=== PATIENT | male | born 1970 | race Caucasian/White ===

== ENCOUNTER 2016-09-16 02:11 | Emergency (ER) | payer OTHER ==
[~2016-09-16] VITALS: Ht 190.5 cm; Wt 122.5 kg
[~2016-09-16 02:11] MED LIST: ACCUNEB SO1.25 MG/1; BREO ELLIPTA 21 EACH IH; CELEBREX 200 M200 MG PO; FLEXERIL PO; GABAPENTIN 100100 MG PO; GEODON20 MG PO; LAMICTAL100 MG; LINZESS290 MCG PO; NORVASC2.5 MG PO; OXYCONTIN CR 1010 MG PO; OXYCONTIN CR 2020 M1 PO; OXYCONTIN60 MG PO; PRILOSEC 20 MG20 MG PO; PROZAC20 M1 PO; ROXICODONE30 MG PO; SEROQUEL 100 M100 M1 PO; SEROQUEL XR400 MG PO; SEROQUEL300 MG PO; SYMBICORT160 MCG/4.; TRAZODONE 150150 M1 PO; ULTRA-LIGHT RO1 EACH MC; VALIUM5 MG PO; VERAPAMIL E.R240 M1 PO; WELLBUTRIN 100100 MG
== END 2016-09-16 04:39 | disposition home or self-care (01) ==
LOC: ER 02:11
DX: G89.18 Other acute postprocedural pain (principal); M54.5 Low back pain; Z98.890 Other specified postprocedural states; I10 Essential (primary) hypertension; J45.909 Unspecified asthma, uncomplicated; F31.9 Bipolar disorder, unspecified; F41.9 Anxiety disorder, unspecified; Z91.030 Bee allergy status; Z88.1 Allergy status to other antibiotic agents; Z88.5 Allergy status to narcotic agent; F17.210 Nicotine dependence, cigarettes, uncomplicated; F10.99 Alcohol use, unspecified with unspecified alcohol-induced disorder; W18.39XA Other fall on same level, initial encounter; Y93.89 Activity, other specified; Y92.89 Other specified places as the place of occurrence of the external cause; Y99.8 Other external cause status

== ENCOUNTER 2016-10-28 09:14 | Emergency (ER) | payer OTHER ==
[~2016-10-28] VITALS: Ht 188 cm; Wt 117.9 kg
[2016-10-28 09:52] LABS: URINE BILIRUBIN 1+ (Negative); URINE BLOOD NEGATIVE (Negative); URINE COLOR YELLOW; URINE GLUCOSE-RANDOM* NEGATIVE (Negative); URINE KETONES TRACE (Negative); URINE NITRITE NEGATIVE (Negative); URINE PROTEIN (DIPSTICK) NEGATIVE (Negative); URINE SPECIFIC GRAVITY >= 1.030 (1.003-1.035)
[2016-10-28 10:02] LABS: ICTOTEST (BILI CONFIRMATORY) Positive (Negative)
[2016-10-28] MEDS ORDERED: MELATONIN1 M1 SL (11:14)
[2016-10-28] MEDS ORDERED: NORCO 5-325 TA1 EACH PO (11:27)
== END 2016-10-28 12:10 | disposition home or self-care (01) ==
LOC: ER 09:14
PROVIDERS: Physician Assistant
DX: S30.0XXA Contusion of lower back and pelvis, initial encounter (principal); G89.29 Other chronic pain; I10 Essential (primary) hypertension; J45.909 Unspecified asthma, uncomplicated; F32.9 Major depressive disorder, single episode, unspecified; F41.9 Anxiety disorder, unspecified; F31.9 Bipolar disorder, unspecified; F17.210 Nicotine dependence, cigarettes, uncomplicated; Z98.84 Bariatric surgery status; Z90.89 Acquired absence of other organs; Z88.1 Allergy status to other antibiotic agents; Z88.5 Allergy status to narcotic agent; Z91.030 Bee allergy status; W18.30XA Fall on same level, unspecified, initial encounter; Y93.89 Activity, other specified; Y92.89 Other specified places as the place of occurrence of the external cause; Y99.9 Unspecified external cause status

== ENCOUNTER 2016-10-30 22:28 | Emergency (ER) | payer OTHER ==
[~2016-10-30] VITALS: Ht 190.5 cm; Wt 117.9 kg
--- NOTE | ~2016-10-30 | EKG ---
[place] [address] [facility] [place] [address] ELECTROCARDIOGRAM REPORT Name: SABAS MOREIRA Room #: DEP Bonita#: [id number] Admission: 10/30/16 Attend Phys: Discharge: 10/31/16 Date of : 74 Report #: [id number] THIS REPORT FOR: //name// [facility] ED Test Date: 2016-10-30 Test Time: 23:49:32 Pat Name: SABAS MOREIRA Department: Room: Gender: Learning And Development Specialist: charlene : 1970 Requested By: Hina Goins Order Number: [id number] MD: Tono Melton Measurements Intervals [place] Rate: 88 P: 35 RI: 157 QRS: 48 QRSD: 88 T: 49 QT: 355 QTc: 430 Interpretive Statements Sinus rhythm Baseline wander in lead(s) I,II,aVR Compared to ECG 08/15/2016 15:32:57 T-wave abnormality no longer present Electronically Signed On 11-04-2016 8:09:54 CDT by Tono Melton [email or web address] <ELECTRONICALLY SIGNED> By: Tono Melton MD 11/04/16 0809 2349 2349 Tono Melton MD /ZBIGNIEW
[~2016-10-30 22:28] MED LIST changes: +MELATONIN1 M1 SL; +NORCO 5-325 TA1 EACH PO
[2016-10-30] MEDS ORDERED: PROMETHAZINE HC25 M2 PO (23:32)
[2016-10-30] MEDS ORDERED: WELLBUTRIN SR150 MG PO (23:32)
[2016-10-30] MEDS ORDERED: NORVASC2.5 MG PO (23:32)
[2016-10-30] MEDS ORDERED: QUETIAPINE FUM400 MG PO (23:33)
[2016-10-30 23:56] LABS: ABSOLUTE NEUTROPHILS 7.1 thou/uL (1.4-8.2); BASOPHILS 0.5 % (0.0-2.0); EOSINOPHILS 0.4 % (0.0-3.0); HEMATOCRIT 45.5 % (42.0-52.0); HEMOGLOBIN 15.7 gm/dL (14.0-18.0); LYMPHOCYTES 14.2 % (24.0-44.0); MCH 31.1 pg (26.0-34.0); MCHC 34.6 g/dL (28.0-37.0); MCV 89.8 fL (80.0-100.0); MONOCYTES 7.6 % (1.0-8.0); PLATELET COUNT 244 thou/uL (150-400); POLYS 77.3 % (36.0-66.0); RBC 5.07 mil/uL (4.50-6.00); WBC 9.2 thou/uL (4.0-11.0)
[2016-10-31] LABS: MANUAL DIFF NO
[2016-10-31 00:10] LABS: ANION GAP 8 mmol/L (7-16); BUN 13 mg/dL (7-18); CALCIUM 8.8 mg/dL (8.5-10.1); CHLORIDE 105 mmol/L (98-107); CO2 26 mmol/L (21-32); CREATININE 0.9 mg/dL (0.7-1.3); GLUCOSE 101 mg/dL (74-106); POTASSIUM 3.3 mmol/L (3.5-5.1); SODIUM 139 mmol/L (136-145)
[2016-10-31 00:11] LABS: APTT 27.1 Seconds (24.5-32.8); INR 1.1; PROTIME 11.4 Seconds (9.3-11.4)
[2016-10-31 00:21] LABS: ALBUMIN 4.1 g/dL (3.4-5.0); ALKALINE PHOSPHATASE 182 U/L (46-116); NT-PRO BRAIN NAT PEPTIDE 46 pg/mL (<300); SGOT 21 U/L (15-37); SGPT 28 U/L (30-65); TOTAL BILIRUBIN 0.6 mg/dL (<0.1-1.0); TOTAL PROTEIN 7.7 g/dL (6.4-8.2); TROPONIN-I < 0.04 ng/mL (<0.04-0.07)
[2016-10-31] MEDS ORDERED: CIPROFLOXACIN500 M1 PO (01:37)
== END 2016-10-31 01:57 | disposition home or self-care (01) ==
LOC: ER 22:28
PROVIDERS: Emergency Medicine
DX: K52.89 Other specified noninfective gastroenteritis and colitis (principal); R19.7 Diarrhea, unspecified; G89.29 Other chronic pain; Z98.890 Other specified postprocedural states; I10 Essential (primary) hypertension; J45.909 Unspecified asthma, uncomplicated; F31.9 Bipolar disorder, unspecified; F41.9 Anxiety disorder, unspecified; Z88.1 Allergy status to other antibiotic agents; Z88.5 Allergy status to narcotic agent; Z91.030 Bee allergy status; F17.210 Nicotine dependence, cigarettes, uncomplicated; F10.99 Alcohol use, unspecified with unspecified alcohol-induced disorder

== ENCOUNTER 2017-04-19 20:07 | Emergency (ER) | payer OTHER ==
[~2017-04-19] VITALS: Ht 190.5 cm; Wt 117.9 kg
[~2017-04-19 20:07] MED LIST changes: +CIPROFLOXACIN500 M1 PO; +PROMETHAZINE HC25 M2 PO; +QUETIAPINE FUM400 MG PO; +WELLBUTRIN SR150 MG PO
[2017-04-20] MEDS ORDERED: ZYPREXA 10 MG T10 MG PO (05:22)
[2017-04-20] MEDS ORDERED: PERCOCET 5-3251 EACH PO (06:32)
== END 2017-04-19 22:26 | disposition left against medical advice (07) ==
LOC: ER 20:07
DX: Z53.21 Procedure and treatment not carried out due to patient leaving prior to being seen by health care provider (principal)

== ENCOUNTER 2017-10-07 13:28 | Inpatient (IN) | payer OTHER ==
[~2017-10-07] VITALS: Ht 190.5 cm; Wt 120.2 kg
--- NOTE | ~2017-10-07 | S ---
[facility] [place] [address] SURGICAL PATH RPT PROCEDURE Name: SABAS MOREIRA Room #: 421-P ADM IN M.R.#: [id number] Admission: 10/07/17 Date of : 74 Discharge: Report #: [id number] Path Case #: [id number] PATHOLOGY REPORT COLLECTION DATE: 10/08/2017 RECEIVED DATE: 10/08/2017 SUBMITTING PHYS: Dr. Cj Nayak, OTHER PHYS: Dr. Toan Spaulding SPECIMEN(S) RECEIVED: A.Gallbladder * * * * * * * * * * * * FINAL DIAGNOSIS: "Gallbladder", cholecystectomy: - Acute and chronic cholecystitis. - Cholelithiasis. (CLW:[facility]; 10/09/2017) PATHOLOGIST: Fanta Lima M.D. REPORT ELECTRONICALLY SIGNED BY: Fanta Lima M.D. DATE/TIME: 10/09/2017 15:19 * * * * * * * * * * * * GROSS PATHOLOGY: Received in formalin labeled "Sabas Moreira and gallbladder," is a previously opened, upon reconstruction 9.5 x 3.5 x 1.5 cm, gallbladder with newsome-purple serosal surfaces. Opening the gallbladder reveals newsome-brown mucosa and an average wall thickness of up to 0.2 cm. There are few black calculi within the gallbladder and additionally black-brown gravel like material within the container measuring 2.0 x 1.2 x 0.3 cm aggregate. Sizer Machine sections are submitted in A1. (SWS; 10/08/2017) CLINICAL HISTORY: Acute cholecystitis INITIAL CPT CODE(S): A; 59867 Professional services performed by [facility] [address] [place] [address] [facility] [address] [place] [address] SURGICAL PATH RPT PROCEDURE Name: SABAS MOREIRA Room #: 421-P ADM IN M.R.#: [id number] Admission: 10/07/17 Date of : 74 Discharge: Report #: [id number] Path Case #: [id number] Technical services performed by [facility] at [address] [place] [address], [facility] [address] [address]. [facility] [address] [place] [address] PHONE: [phone] DIRECTOR: Christo Jaquez M.D. * * * END OF REPORT * * *
--- NOTE | ~2017-10-07 | EKG ---
[address] [address] ELECTROCARDIOGRAM REPORT Name: LILLIESBAAS RAMIREZLEY Room #: 170-11 ADM IN M.R.#: [id number] Admission: 10/07/17 Attend Phys: Toan Blancas MD Discharge: Date of : 74 Report #: [id number] THIS REPORT FOR: //name// [facility] ED Test Date: 2017-10-07 Test Time: 16:13:06 Pat Name: SABAS MOREIRA Department: Room: 170 Gender: M Methods Study Analyst: MZOOK : 1970 Requested By: Jose Dey Order Number: [id number] MD: Freddy Forman Measurements Intervals [place] Rate: 87 P: 28 RI: 166 QRS: 49 QRSD: 90 T: 57 QT: 359 QTc: 432 Interpretive Statements Sinus rhythm No significant abnormality Compared to ECG 04/21/2017 00:10:18 No significant changes Electronically Signed On 10-07-2017 16:46:41 CDT by Freddy Forman [email or web address] <ELECTRONICALLY SIGNED> By: Freddy Forman MD, [facility] 10/07/17 1646 12 12 Freddy Forman MD, FAC /EPI
--- NOTE | ~2017-10-07 | HC ---
[facility] [place] [address] CONSULTATION Name: SABAS MOREIRA Room #: 421-P ADM IN M.R.#: [id number] Admission: 10/07/17 Attend Phys: Toan Blancas MD Discharge: Date of : 74 Report #: [id number] THIS REPORT FOR: //name// CC: Arcelia Blancas DATE OF SERVICE: 10/07/2017 REFERRING PROVIDER: Toan Blancas MD REASON FOR CONSULT: Abdominal pain. HISTORY OF PRESENT ILLNESS: The patient is a 47-year-old morbidly obese male who is 6-year status post laparoscopic Silvestre-en-Y gastric bypass done at [facility] with a weight loss of nearly 200 pounds. The patient presented to the emergency room today with a 5-day history of intermittent right upper quadrant abdominal pain and nausea. The patient underwent a workup in the form of laboratories and an ultrasound of the abdomen. The patient's labs showed a normal white blood cell count; however, his liver function enzymes are slightly elevated with an AST of 94, ALT of 78 and a normal bilirubin of 0.4. The patient's lipase is normal at 96. An ultrasound of the abdomen did show numerous gallstones within the gallbladder without gallbladder wall thickening as the wall thickness is the upper range of normal. He does have a positive sonographic Church sign and has no evidence of biliary ductal dilatation. As the patient has right upper quadrant abdominal pain with nausea and a positive sonographic Church sign with mildly elevated transaminases and gallstones, the patient has been admitted with a working diagnosis of early acute cholecystitis and we were asked to evaluate. PAST MEDICAL HISTORY: Hypertension, asthma, depression with anxiety, bipolarism, chronic back pain status post diskectomy and lumbar fusion and he has undergone a prior Silvestre-en-Y gastric bypass. HOME MEDICATIONS: Flexeril, oxycodone, Wellbutrin, quetiapine, Prozac, Linzess, fluticasone, vilanterol inhaler and Valium. ALLERGIES: BEE STINGS, KEFLEX, which causes anaphylaxis and MORPHINE, which causes vomiting. FAMILY HISTORY: Reviewed and noncontributory. SOCIAL HISTORY: The patient smokes cigarettes and he smoked 1 pack per day for several years, drinks alcohol occasionally and smokes marijuana. REVIEW OF SYSTEMS: GENERAL: The patient denies nocturnal fevers or chills. [facility] [address] [place] [address] CONSULTATION Name: SABAS MOREIRA Room #: 421-P [facility] IN M.R.#: [id number] Admission: 10/07/17 Attend Phys: Toan Blancas MD Discharge: Date of : 74 Report #: [id number] HEENT: No change in vision or change in hearing. NECK: No swelling or difficulty swallowing. HEART: No chest pain or palpitations. LUNGS: No cough or shortness of breath. ABDOMEN: Positive nausea, but no vomiting. GENITOURINARY: No dysuria or hematuria. ENDOCRINE: No polyuria or polydipsia. HEMATOLOGIC: No history of bleeding or easy bruising. EXTREMITIES: No history weakness or limited range of motion. NEUROLOGIC: No history of syncope or near syncopal episodes. SKIN AND INTEGUMENT: No history of abnormal lesions or moles. PSYCHIATRIC: Positive history of anxiety, depression and bipolarism. PHYSICAL EXAMINATION: VITAL SIGNS: Temperature 36.8, pulse 117, respirations 16, blood pressure 142/86, he is 6 feet 3 inches tall, and weighs 265 pounds. GENERAL: Alert and oriented, in no acute distress. HEENT: Normocephalic, atraumatic. Pupils are equal, round, and reactive to light. NECK: Supple, without lymphadenopathy. Trachea midline. HEART: Tachycardic, but regular rhythm. LUNGS: Clear to auscultation bilaterally. ABDOMEN: Obese, soft, nondistended. He does have point tenderness in the right upper quadrant without significant guarding, rebound or peritoneal signs or symptoms. GENITOURINARY: Normal external male genitalia. EXTREMITIES: No clubbing, cyanosis or edema. NEUROLOGIC: Cranial nerves 2-12 are grossly intact. PSYCHIATRIC: Normal mood and affect. SKIN AND INTEGUMENT: No abnormal lesions or moles. LABORATORY AND X-RAY DATA: CBC showed a white blood cell count of 4.6 thousand, hemoglobin is 14.5, and platelets 229,000. Creatinine 1.3. Liver function enzymes show an AST of 94, ALT 78, alkaline phosphatase 179 with a bilirubin of 0.4. His lipase was 96. Ultrasound of the abdomen as per HPI shows cholelithiasis and upper limits normal gallbladder wall thickness with a positive sonographic Church sign. ASSESSMENT AND PLAN: A 47-year-old morbidly obese male who is 6 years out from a laparoscopic Silvestre-en-Y gastric bypass with 200-pound weight loss and what appears to be early acute cholecystitis at this time. The patient has been placed on IV antibiotics in the form of Cipro and Flagyl and we will keep him n.p.o. after midnight, at which time my partner, Dr. Nayak will take the patient to the operating room first thing in the morning for a laparoscopic cholecystectomy with cholangiogram. Risks, benefits and alternatives of the procedure have been discussed with the patient in detail and he agrees to [facility] [address] [place] [address] CONSULTATION Name: SABAS MOREIRA EMILY Room #: 421-P ADM IN M.R.#: [id number] Admission: 10/07/17 Attend Phys: Toan Blancas MD Discharge: Date of : 74 Report #: [id number] proceed as outlined. We sincerely appreciate this consult and we will follow along and leave any further recommendations in the patient's chart as appropriate. <ELECTRONICALLY SIGNED> By: Wandy Fountain MD, FACS 10/08/17 0854 01 08 Wandy Fountain MD, FACS /nt
[~2017-10-07 13:28] MED LIST changes: +PERCOCET 5-3251 EACH PO; +ZYPREXA 10 MG T10 MG PO
[2017-10-07 13:29] VITALS: BP 142/86
[2017-10-07 14:18] LABS: ABSOLUTE NEUTROPHILS 3.2 thou/uL (1.4-8.2); BASOPHILS 0.6 % (0.0-2.0); HEMATOCRIT 42.9 % (42.0-52.0); HEMOGLOBIN 14.5 gm/dL (14.0-18.0); LYMPHOCYTES 21.3 % (24.0-44.0); MCHC 33.8 g/dL (28.0-37.0); MCV 91.5 fL (80.0-100.0); MONOCYTES 6.1 % (1.0-8.0); PLATELET COUNT 229 thou/uL (150-400); RBC 4.69 mil/uL (4.50-6.00); RDW 13.7 % (10.5-14.5); WBC 4.6 thou/uL (4.0-11.0)
[2017-10-07 14:25] LABS: CALCIUM 8.4 mg/dL (8.5-10.1); CREATININE 1.3 mg/dL (0.7-1.3)
[2017-10-07] MEDS ORDERED: PROZAC20 MG PO (14:29)
[2017-10-07] MEDS ORDERED: QUETIAPINE FUM400 MG PO (14:29)
[2017-10-07 14:31] LABS: ALBUMIN 3.5 g/dL (3.4-5.0); TOTAL BILIRUBIN 0.4 mg/dL (<0.1-1.0); TOTAL PROTEIN 6.8 g/dL (6.4-8.2)
[2017-10-07 16:00] VITALS: BP 125/87
[2017-10-07 16:19] VITALS: BP 111/64
[2017-10-07 19:07] LABS: URINE BILIRUBIN NEGATIVE (Negative); URINE BLOOD NEGATIVE (Negative); URINE CLARITY CLEAR; URINE COLOR YELLOW; URINE GLUCOSE-RANDOM* 1+ (Negative); URINE KETONES NEGATIVE (Negative); URINE LEUKOCYTES NEGATIVE (Negative); URINE NITRITE NEGATIVE (Negative); URINE PROTEIN (DIPSTICK) NEGATIVE (Negative); URINE SPECIFIC GRAVITY 1.015 (1.005-1.035)
[2017-10-08] VITALS (7 sets, daily range): BP systolic 101–154; BP diastolic 64–98
[2017-10-08 06:21] LABS: ABSOLUTE NEUTROPHILS 2.8 thou/uL (1.4-8.2); BASOPHILS 1.1 % (0.0-2.0); HEMATOCRIT 39.9 % (42.0-52.0); HEMOGLOBIN 13.5 gm/dL (14.0-18.0); LYMPHOCYTES 40.2 % (24.0-44.0); MCV 91.3 fL (80.0-100.0); MONOCYTES 8.1 % (1.0-8.0); PLATELET COUNT 234 thou/uL (150-400); POLYS 46.6 % (36.0-66.0); RBC 4.37 mil/uL (4.50-6.00); RDW 13.8 % (10.5-14.5)
[2017-10-08 06:34] LABS: ALBUMIN 3.3 g/dL (3.4-5.0); CALCIUM 8.2 mg/dL (8.5-10.1); CREATININE 1.2 mg/dL (0.7-1.3); DIRECT BILIRUBIN 0.1 mg/dL (<0.1-0.3); MAGNESIUM 1.7 mg/dL (1.8-2.4); TOTAL BILIRUBIN 0.5 mg/dL (<0.1-1.0); TOTAL PROTEIN 6.2 g/dL (6.4-8.2)
[2017-10-09 04:30] VITALS: BP 139/88
[2017-10-09 06:03] LABS: HEMATOCRIT 41.4 % (42.0-52.0); HEMOGLOBIN 13.8 gm/dL (14.0-18.0); MCHC 33.5 g/dL (28.0-37.0); MCV 92.5 fL (80.0-100.0); RBC 4.47 mil/uL (4.50-6.00); RDW 13.9 % (10.5-14.5)
[2017-10-09 06:09] LABS: ALBUMIN 3.3 g/dL (3.4-5.0); CALCIUM 8.2 mg/dL (8.5-10.1); CREATININE 1.2 mg/dL (0.7-1.3); POTASSIUM 4.3 mmol/L (3.5-5.1); TOTAL BILIRUBIN 0.3 mg/dL (<0.1-1.0); TOTAL PROTEIN 6.6 g/dL (6.4-8.2)
[2017-10-09 08:32] VITALS: BP 137/69
[2017-10-09 17:31] VITALS: BP 118/8
[2017-10-09 19:42] VITALS: BP 119/80
[2017-10-10 04:15] VITALS: BP 112/68
[2017-10-10 06:15] LABS: CALCIUM 8.3 mg/dL (8.5-10.1); MAGNESIUM 2.4 mg/dL (1.8-2.4)
[2017-10-10 06:16] LABS: POTASSIUM 4.9 mmol/L (3.5-5.1)
[2017-10-10 07:30] VITALS: BP 117/72
[2017-10-10 07:37] LABS: ABSOLUTE NEUTROPHILS 5.1 thou/uL (1.4-8.2); BASOPHILS 0.5 % (0.0-2.0); EOSINOPHILS 3.2 % (0.0-3.0); HEMATOCRIT 39.5 % (42.0-52.0); HEMOGLOBIN 13.2 gm/dL (14.0-18.0); LYMPHOCYTES 22.5 % (24.0-44.0); MCH 30.9 pg (26.0-34.0); MCHC 33.5 g/dL (28.0-37.0); MCV 92.2 fL (80.0-100.0); MONOCYTES 10.7 % (1.0-8.0); PLATELET COUNT 204 thou/uL (150-400); POLYS 63.1 % (36.0-66.0); RBC 4.29 mil/uL (4.50-6.00); RDW 13.9 % (10.5-14.5); WBC 8.1 thou/uL (4.0-11.0)
[2017-10-10 13:40] VITALS: BP 117/72
== END 2017-10-10 20:20 | disposition home or self-care (01) | DRG 419 ==
LOC: ER 13:28 → 4E 15:59 → EROBS 15:59 → 4E 16:45
PROVIDERS: Internal Medicine; Nurse Practitioner; Physician Assistant; Surgery
DX: K80.12 Calculus of gallbladder with acute and chronic cholecystitis without obstruction (principal); E87.6 Hypokalemia; I10 Essential (primary) hypertension; J45.909 Unspecified asthma, uncomplicated; F31.9 Bipolar disorder, unspecified; F41.9 Anxiety disorder, unspecified; F17.210 Nicotine dependence, cigarettes, uncomplicated; E66.01 Morbid (severe) obesity due to excess calories; R73.9 Hyperglycemia, unspecified; G89.29 Other chronic pain; M54.9 Dorsalgia, unspecified; F12.10 Cannabis abuse, uncomplicated; Z71.51 Drug abuse counseling and surveillance of drug abuser; Z68.33 Body mass index [BMI] 33.0-33.9, adult; Z98.84 Bariatric surgery status; Z98.1 Arthrodesis status; Z90.49 Acquired absence of other specified parts of digestive tract; Z79.51 Long term (current) use of inhaled steroids; Z79.899 Other long term (current) drug therapy; Z88.5 Allergy status to narcotic agent; Z88.8 Allergy status to other drugs, medicaments and biological substances; Z91.030 Bee allergy status
CPT/HCPCS: 10084; 50010; 50249; 50411; 50555; 50558; 50962; 51489; 51975; 52265; 53307; 53310; 54022; 54118; 55245; 55317; 56462; 56526

== ENCOUNTER 2017-11-25 04:18 | Emergency (ER) | payer OTHER ==
[~2017-11-25] VITALS: Ht 190.5 cm; Wt 127.0 kg
[~2017-11-25 04:18] MED LIST changes: +ALBUTEROL INH; +BACTRIM DS TAB1 EACH PO; +BREO ELLIPTA 11 EACH INH; +FLEXERIL; +HYDROCHLOROTHIA25 M2; +LINZESS145 MCG PO; +NAPROSYN500 MG; +OXYCONTIN40 MG PO; +PROZAC10 MG PO; +PROZAC20 MG PO; +QUETIAPINE FUM100 MG PO; +VERAPAMIL E.R240 M1
[2017-11-25] MEDS ORDERED: PREDNISONE 20 M20 MG PO (04:49)
== END 2017-11-25 05:07 | disposition home or self-care (01) ==
LOC: ER 04:18
DX: G89.29 Other chronic pain (principal); M54.5 Low back pain; M54.16 Radiculopathy, lumbar region; J45.909 Unspecified asthma, uncomplicated; F31.9 Bipolar disorder, unspecified; F41.9 Anxiety disorder, unspecified; F17.210 Nicotine dependence, cigarettes, uncomplicated; Z91.013 Allergy to seafood; Z90.49 Acquired absence of other specified parts of digestive tract; Z88.5 Allergy status to narcotic agent; Z88.1 Allergy status to other antibiotic agents

== ENCOUNTER 2017-12-25 01:25 | Emergency (ER) | payer OTHER ==
[~2017-12-25] VITALS: Ht 190.5 cm; Wt 127.0 kg
[~2017-12-25 01:25] MED LIST changes: +PREDNISONE 20 M20 MG PO
[2017-12-25] MEDS ORDERED: ROXICODONE30 MG PO (02:24)
== END 2017-12-25 03:56 | disposition home or self-care (01) ==
LOC: ER 01:25
DX: M54.5 Low back pain (principal); G89.29 Other chronic pain; F17.210 Nicotine dependence, cigarettes, uncomplicated; J45.909 Unspecified asthma, uncomplicated; F31.9 Bipolar disorder, unspecified; F41.9 Anxiety disorder, unspecified; Z90.49 Acquired absence of other specified parts of digestive tract; Z88.1 Allergy status to other antibiotic agents; Z88.5 Allergy status to narcotic agent; Z91.030 Bee allergy status

== ENCOUNTER 2018-04-29 16:42 | Emergency (ER) | payer OTHER ==
[~2018-04-29] VITALS: Ht 188 cm; Wt 127.0 kg
[2018-04-29 18:11] LABS: ABSOLUTE NEUTROPHILS 3.7 thou/uL (1.4-8.2); BASOPHILS 0.8 % (0.0-2.0); EOSINOPHILS 1.1 % (0.0-3.0); HEMATOCRIT 43.5 % (42.0-52.0); LYMPHOCYTES 24.6 % (24.0-44.0); MCH 31.5 pg (26.0-34.0); MCHC 34.5 g/dL (28.0-37.0); MCV 91.3 fL (80.0-100.0); MONOCYTES 8.3 % (1.0-8.0); PLATELET COUNT 265 thou/uL (150-400); POLYS 65.2 % (36.0-66.0); RBC 4.76 mil/uL (4.50-6.00); RDW 13.5 % (10.5-14.5); WBC 5.7 thou/uL (4.0-11.0)
[2018-04-29 18:18] LABS: CALCIUM 8.9 mg/dL (8.5-10.1); CREATININE 1.1 mg/dL (0.7-1.3); POTASSIUM 3.4 mmol/L (3.5-5.1)
[2018-04-29 18:23] LABS: ALBUMIN 3.7 g/dL (3.4-5.0); DIRECT BILIRUBIN 0.1 mg/dL (<0.1-0.3); TOTAL BILIRUBIN 0.3 mg/dL (<0.1-1.0); TOTAL PROTEIN 7.5 g/dL (6.4-8.2)
[2018-04-29 19:50] LABS: URINE BILIRUBIN NEGATIVE (Negative); URINE BLOOD NEGATIVE (Negative); URINE CLARITY CLEAR; URINE COLOR YELLOW; URINE GLUCOSE-RANDOM* NEGATIVE (Negative); URINE KETONES NEGATIVE (Negative); URINE LEUKOCYTES-REFLEX NEGATIVE (Negative); URINE NITRITE-REFLEX NEGATIVE (Negative); URINE PROTEIN (DIPSTICK) NEGATIVE (Negative); URINE SPECIFIC GRAVITY >= 1.030 (1.005-1.035)
[2018-04-29 20:09] VITALS: BP 130/80
== END 2018-04-29 20:11 | disposition home or self-care (01) ==
LOC: ER 16:42
PROVIDERS: Emergency Medicine
DX: R10.30 Lower abdominal pain, unspecified (principal); G89.4 Chronic pain syndrome; R19.7 Diarrhea, unspecified; R30.0 Dysuria; F11.10 Opioid abuse, uncomplicated; F17.210 Nicotine dependence, cigarettes, uncomplicated; J45.909 Unspecified asthma, uncomplicated; F31.9 Bipolar disorder, unspecified; F41.9 Anxiety disorder, unspecified; M54.9 Dorsalgia, unspecified; Z88.1 Allergy status to other antibiotic agents; Z88.5 Allergy status to narcotic agent; Z91.030 Bee allergy status; Z90.49 Acquired absence of other specified parts of digestive tract

== ENCOUNTER 2018-05-11 08:18 | Emergency (ER) | payer OTHER ==
[~2018-05-11] VITALS: Ht 190.5 cm; Wt 127.0 kg
[2018-05-11] MEDS ORDERED: WELLBUTRIN XL300 MG PO (08:27)
[2018-05-11 10:03] VITALS: BP 126/81
== END 2018-05-11 10:04 | disposition home or self-care (01) ==
LOC: ER 08:18
DX: T15.92XA Foreign body on external eye, part unspecified, left eye, initial encounter (principal); F17.210 Nicotine dependence, cigarettes, uncomplicated; J45.909 Unspecified asthma, uncomplicated; F31.9 Bipolar disorder, unspecified; F41.9 Anxiety disorder, unspecified; G89.29 Other chronic pain; M54.9 Dorsalgia, unspecified; Z90.49 Acquired absence of other specified parts of digestive tract; Z98.890 Other specified postprocedural states; Z91.030 Bee allergy status; Z88.1 Allergy status to other antibiotic agents; Z88.5 Allergy status to narcotic agent; X58.XXXA Exposure to other specified factors, initial encounter; Y92.89 Other specified places as the place of occurrence of the external cause; Y93.89 Activity, other specified; Y99.8 Other external cause status

== ENCOUNTER 2018-06-03 18:58 | Emergency (ER) | payer OTHER ==
[~2018-06-03] VITALS: Ht 190.5 cm; Wt 129.3 kg
[~2018-06-03 18:58] MED LIST changes: +WELLBUTRIN XL300 MG PO
[2018-06-03] MEDS ORDERED: BACTRIM DS TAB1 EACH PO (20:45)
[2018-06-03 21:35] VITALS: BP 134/92
== END 2018-06-03 21:36 | disposition home or self-care (01) ==
LOC: ER 18:58
DX: L02.211 Cutaneous abscess of abdominal wall (principal); F17.210 Nicotine dependence, cigarettes, uncomplicated; J45.909 Unspecified asthma, uncomplicated; F31.9 Bipolar disorder, unspecified; F41.9 Anxiety disorder, unspecified; G89.29 Other chronic pain; M54.9 Dorsalgia, unspecified; Z90.49 Acquired absence of other specified parts of digestive tract; Z98.890 Other specified postprocedural states; Z91.030 Bee allergy status; Z88.1 Allergy status to other antibiotic agents; Z88.5 Allergy status to narcotic agent

== ENCOUNTER 2018-07-14 07:44 | Emergency (ER) | payer OTHER ==
[~2018-07-14] VITALS: Ht 190.5 cm; Wt 127.0 kg
[2018-07-14] MEDS ORDERED: BACTRIM DS TAB1 EACH PO (08:50)
[2018-07-14] MEDS ORDERED: IBUPROFEN 400400 M2 PO (08:50)
[2018-07-14 09:08] VITALS: BP 140/95
== END 2018-07-14 09:10 | disposition home or self-care (01) ==
LOC: ER 07:44
DX: J32.9 Chronic sinusitis, unspecified (principal); J45.909 Unspecified asthma, uncomplicated; F31.9 Bipolar disorder, unspecified; F41.9 Anxiety disorder, unspecified; M54.9 Dorsalgia, unspecified; G89.29 Other chronic pain; Z90.49 Acquired absence of other specified parts of digestive tract; Z98.84 Bariatric surgery status; F17.210 Nicotine dependence, cigarettes, uncomplicated; Z88.1 Allergy status to other antibiotic agents; Z88.5 Allergy status to narcotic agent; Z91.030 Bee allergy status

== ENCOUNTER 2018-07-27 16:31 | Emergency (ER) | payer OTHER ==
[~2018-07-27] VITALS: Ht 190.5 cm; Wt 127.0 kg
[~2018-07-27 16:31] MED LIST changes: +IBUPROFEN 400400 M2 PO
[2018-07-27 16:48] LABS: ABSOLUTE NEUTROPHILS 5.3 thou/uL (1.4-8.2); BASOPHILS 1.1 % (0.0-2.0); EOSINOPHILS 0.7 % (0.0-3.0); HEMATOCRIT 44.5 % (42.0-52.0); HEMOGLOBIN 15.7 gm/dL (14.0-18.0); LYMPHOCYTES 18.7 % (24.0-44.0); MCH 31.3 pg (26.0-34.0); MCHC 35.4 g/dL (28.0-37.0); MCV 88.5 fL (80.0-100.0); MONOCYTES 5.9 % (1.0-8.0); PLATELET COUNT 296 thou/uL (150-400); POLYS 73.6 % (36.0-66.0); RBC 5.03 mil/uL (4.50-6.00); RDW 13.8 % (10.5-14.5); WBC 7.3 thou/uL (4.0-11.0)
[2018-07-27 17:01] LABS: ANION GAP 12 mmol/L (7-16); BUN 12 mg/dL (7-18); CHLORIDE 103 mmol/L (98-107); CO2 23 mmol/L (21-32); CREATININE 1.3 mg/dL (0.7-1.3); GLUCOSE 112 mg/dL (74-106); POTASSIUM 3.9 mmol/L (3.5-5.1); SODIUM 138 mmol/L (136-145)
[2018-07-27 17:06] LABS: ALBUMIN 4.3 g/dL (3.4-5.0); LIPASE 107 U/L (73-393); SGOT 25 U/L (15-37); SGPT 31 U/L (30-65); TOTAL BILIRUBIN 0.4 mg/dL (<0.1-1.0); TOTAL PROTEIN 8.1 g/dL (6.4-8.2); TROPONIN-I <0.06 ng/mL (<0.06)
[2018-07-27] MEDS ORDERED: CARAFATE 1 GM TA1 G1 PO (19:59)
[2018-07-27] MEDS ORDERED: FAMOTIDINE 20 M20 MG PO (19:59)
[2018-07-27 20:32] VITALS: BP 140/96
--- NOTE | 2018-07-28 08:19 | EKG ---
[address] [place] [address] ELECTROCARDIOGRAM REPORT Name: SABAS MOREIRA Room #: DEP Bonita#: [id number] Admission: 07/27/18 Attend Phys: Discharge: 07/27/18 Date of : 74 Report #: [id number] THIS REPORT FOR: //name// [facility] ED Test Date: 2018-07-27 Test Time: 16:44:25 Pat Name: SABAS MOREIRA Department: Room: Gender: Applications Manager: christ : 1970 Requested By: Jose Dey Order Number: [id number] MD: Tono Melton Measurements Intervals [place] Rate: 98 P: 49 PA: 160 QRS: 62 QRSD: 91 T: 43 QT: 314 QTc: 401 Interpretive Statements Sinus rhythm Compared to ECG 11/06/2017 18:34:29 T-wave abnormality no longer present Electronically Signed On 07-28-2018 8:19:03 LAND MANAGER by Tono Melton [email or web address] <ELECTRONICALLY SIGNED> By: Tono Melton MD 07/28/18 0819 1644 1644 Tono Melton MD /ZBIGNIEW
--- NOTE | 2018-07-28 08:21 | EKG ---
[place] [address] [facility] [place] [address] ELECTROCARDIOGRAM REPORT Name: SABAS MOREIRA Room #: DEP Bonita#: [id number] Admission: 07/27/18 Attend Phys: Discharge: 07/27/18 Date of : 74 Report #: [id number] THIS REPORT FOR: //name// [facility] ED Test Date: 2018-07-27 Test Time: 19:12:52 Pat Name: SABAS MOREIRA Department: Room: Gender: M Optical Coating Technician: JONN : 1970 Requested By: Jose Dey Order Number: [id number] MD: Tono Melton Measurements Intervals [place] Rate: 79 P: 45 WA: 169 QRS: 47 QRSD: 89 T: 54 QT: 369 QTc: 424 Interpretive Statements Sinus rhythm Abnormal R-wave progression, early transition Compared to ECG 11/06/2017 18:34:29 T-wave abnormality no longer present Electronically Signed On 07-28-2018 8:21:28 AFFILIATE MARKETING SPECIALIST by Tono Melton [email or web address] <ELECTRONICALLY SIGNED> By: Tono Melton MD 07/28/18820 11 11 Tono Melton MD /ZBIGNIEW
== END 2018-07-27 20:33 | disposition home or self-care (01) ==
LOC: ER 16:31
PROVIDERS: Physician Assistant
DX: K29.70 Gastritis, unspecified, without bleeding (principal); J45.909 Unspecified asthma, uncomplicated; F31.9 Bipolar disorder, unspecified; G89.29 Other chronic pain; M54.9 Dorsalgia, unspecified; F17.210 Nicotine dependence, cigarettes, uncomplicated; Z88.1 Allergy status to other antibiotic agents; Z88.6 Allergy status to analgesic agent; Z91.030 Bee allergy status; Z90.49 Acquired absence of other specified parts of digestive tract

== ENCOUNTER 2018-07-31 12:15 | Emergency (ER) | payer OTHER ==
[~2018-07-31] VITALS: Ht 185.4 cm; Wt 111.1 kg
[~2018-07-31 12:15] MED LIST changes: +CARAFATE 1 GM TA1 G1 PO; +FAMOTIDINE 20 M20 MG PO
[2018-07-31] MEDS ORDERED: NAPROSYN500 MG PO (13:53)
[2018-07-31 15:43] VITALS: BP 113/80
== END 2018-07-31 15:45 | disposition home or self-care (01) ==
LOC: ER 12:15
DX: S93.491A Sprain of other ligament of right ankle, initial encounter (principal); S09.90XA Unspecified injury of head, initial encounter; M54.5 Low back pain; G89.29 Other chronic pain; M54.6 Pain in thoracic spine; F17.210 Nicotine dependence, cigarettes, uncomplicated; J45.909 Unspecified asthma, uncomplicated; F31.9 Bipolar disorder, unspecified; Z90.49 Acquired absence of other specified parts of digestive tract; Z91.030 Bee allergy status; Z88.1 Allergy status to other antibiotic agents; Z88.5 Allergy status to narcotic agent; W00.1XXA Fall from stairs and steps due to ice and snow, initial encounter; Y93.89 Activity, other specified; Y92.89 Other specified places as the place of occurrence of the external cause; Y99.8 Other external cause status

== ENCOUNTER 2018-11-14 20:17 | Emergency (ER) | payer OTHER ==
[~2018-11-14] VITALS: Ht 190.5 cm; Wt 131.1 kg
[~2018-11-14 20:17] MED LIST changes: +NAPROSYN500 MG PO
[2018-11-14] MEDS ORDERED: NORCO 5-325 TA1 EACH PO (21:21)
[2018-11-14] MEDS ORDERED: MEDROLDOSEPACK PO (21:21)
[2018-11-14 21:45] VITALS: BP 125/86
== END 2018-11-14 21:45 | disposition home or self-care (01) ==
LOC: ER 20:17
DX: G89.29 Other chronic pain (principal); M54.5 Low back pain; J45.909 Unspecified asthma, uncomplicated; F31.9 Bipolar disorder, unspecified; F41.9 Anxiety disorder, unspecified; Z98.84 Bariatric surgery status; Z90.49 Acquired absence of other specified parts of digestive tract; F17.210 Nicotine dependence, cigarettes, uncomplicated; Z88.1 Allergy status to other antibiotic agents; Z88.5 Allergy status to narcotic agent; Z91.030 Bee allergy status

== ENCOUNTER 2018-11-20 23:15 | Emergency (ER) | payer OTHER ==
[~2018-11-20] VITALS: Ht 190.5 cm; Wt 127.0 kg
[~2018-11-20 23:15] MED LIST changes: +MEDROLDOSEPACK PO
[2018-11-21 00:16] LABS: ABSOLUTE NEUTROPHILS 4.2 thou/uL (1.4-8.2); BASOPHILS 0.5 % (0.0-2.0); HEMATOCRIT 42.4 % (42.0-52.0); HEMOGLOBIN 14.4 gm/dL (14.0-18.0); LYMPHOCYTES 30.3 % (24.0-44.0); MCH 30.4 pg (26.0-34.0); MCHC 33.9 g/dL (28.0-37.0); MCV 89.8 fL (80.0-100.0); PLATELET COUNT 267 thou/uL (150-400); POLYS 60.2 % (36.0-66.0); RBC 4.72 mil/uL (4.50-6.00); RDW 14.5 % (10.5-14.5)
[2018-11-21 00:24] LABS: CALCIUM 8.3 mg/dL (8.5-10.1); POTASSIUM 4.1 mmol/L (3.5-5.1)
[2018-11-21 00:29] LABS: ALBUMIN 3.7 g/dL (3.4-5.0); TOTAL BILIRUBIN 0.3 mg/dL (<0.1-1.0)
[2018-11-21] MEDS ORDERED: PROTONIX40 M2 PO (01:01)
[2018-11-21] MEDS ORDERED: ZOFRAN ODT4 MG PO (01:03)
[2018-11-21 01:15] VITALS: BP 121/86
== END 2018-11-21 01:15 | disposition home or self-care (01) ==
LOC: ER 23:15
PROVIDERS: Emergency Medicine
DX: R10.13 Epigastric pain (principal); J45.909 Unspecified asthma, uncomplicated; F31.9 Bipolar disorder, unspecified; F41.9 Anxiety disorder, unspecified; G89.29 Other chronic pain; Z88.1 Allergy status to other antibiotic agents; Z88.5 Allergy status to narcotic agent; Z91.030 Bee allergy status; Z90.49 Acquired absence of other specified parts of digestive tract

== ENCOUNTER 2018-12-08 22:51 | Emergency (ER) | payer OTHER ==
[~2018-12-08] VITALS: Ht 190.5 cm; Wt 127.0 kg
[~2018-12-08 22:51] MED LIST changes: +PROTONIX40 M2 PO; +ZOFRAN ODT4 MG PO
[2018-12-09 00:05] LABS: ABSOLUTE NEUTROPHILS 4.6 thou/uL (1.4-8.2); BASOPHILS 0.6 % (0.0-2.0); EOSINOPHILS 1.8 % (0.0-3.0); HEMATOCRIT 42.9 % (42.0-52.0); HEMOGLOBIN 14.3 gm/dL (14.0-18.0); LYMPHOCYTES 17.9 % (24.0-44.0); MCH 30.1 pg (26.0-34.0); MCHC 33.4 g/dL (28.0-37.0); MCV 90.2 fL (80.0-100.0); MONOCYTES 10.4 % (1.0-8.0); PLATELET COUNT 239 thou/uL (150-400); POLYS 69.3 % (36.0-66.0); RBC 4.76 mil/uL (4.50-6.00); RDW 13.8 % (10.5-14.5); WBC 6.6 thou/uL (4.0-11.0)
[2018-12-09 00:10] LABS: CALCIUM 8.5 mg/dL (8.5-10.1); POTASSIUM 3.9 mmol/L (3.5-5.1)
[2018-12-09 01:58] LABS: URINE BILIRUBIN NEGATIVE (Negative); URINE BLOOD NEGATIVE (Negative); URINE CLARITY CLEAR; URINE COLOR YELLOW; URINE GLUCOSE-RANDOM* NEGATIVE (Negative); URINE KETONES NEGATIVE (Negative); URINE LEUKOCYTES-REFLEX NEGATIVE (Negative); URINE NITRITE-REFLEX NEGATIVE (Negative); URINE PROTEIN (DIPSTICK) NEGATIVE (Negative); URINE SPECIFIC GRAVITY 1.015 (1.005-1.035)
[2018-12-09 02:34] VITALS: BP 122/73
== END 2018-12-09 02:35 | disposition home or self-care (01) ==
LOC: ER 22:51
PROVIDERS: Emergency Medicine
DX: R10.11 Right upper quadrant pain (principal); R30.0 Dysuria; F17.210 Nicotine dependence, cigarettes, uncomplicated; J45.909 Unspecified asthma, uncomplicated; F31.9 Bipolar disorder, unspecified; F41.9 Anxiety disorder, unspecified; M54.9 Dorsalgia, unspecified; G89.29 Other chronic pain; Z98.890 Other specified postprocedural states; Z91.030 Bee allergy status; Z90.49 Acquired absence of other specified parts of digestive tract; Z88.1 Allergy status to other antibiotic agents; Z88.5 Allergy status to narcotic agent

== ENCOUNTER 2019-01-18 22:26 | Emergency (ER) | payer OTHER ==
[~2019-01-18] VITALS: Ht 190.5 cm; Wt 120.2 kg
[2019-01-18] MEDS ORDERED: ZYPREXA2.5 MG PO (22:39)
[2019-01-18 23:58] VITALS: BP 124/72
== END 2019-01-18 23:59 | disposition home or self-care (01) ==
LOC: ER 22:26
DX: G89.29 Other chronic pain (principal); M54.5 Low back pain; J45.909 Unspecified asthma, uncomplicated; F31.9 Bipolar disorder, unspecified; F41.9 Anxiety disorder, unspecified; F17.210 Nicotine dependence, cigarettes, uncomplicated; Z98.1 Arthrodesis status; Z98.84 Bariatric surgery status; Z90.49 Acquired absence of other specified parts of digestive tract; Z91.030 Bee allergy status; Z88.6 Allergy status to analgesic agent; Z88.1 Allergy status to other antibiotic agents

== ENCOUNTER 2019-01-21 14:39 | Emergency (ER) | payer OTHER ==
[~2019-01-21] VITALS: Ht 190.5 cm; Wt 120.2 kg
[~2019-01-21 14:39] MED LIST changes: +ZYPREXA2.5 MG PO
[2019-01-21 15:14] LABS: ABSOLUTE NEUTROPHILS 3.5 thou/uL (1.4-8.2); BASOPHILS 0.4 % (0.0-2.0); EOSINOPHILS 1.1 % (0.0-3.0); HEMOGLOBIN 13.9 gm/dL (14.0-18.0); LYMPHOCYTES 23.5 % (24.0-44.0); MCH 30.6 pg (26.0-34.0); MCHC 33.9 g/dL (28.0-37.0); MCV 90.3 fL (80.0-100.0); MONOCYTES 8.9 % (1.0-8.0); PLATELET COUNT 256 thou/uL (150-400); POLYS 66.1 % (36.0-66.0); RBC 4.54 mil/uL (4.50-6.00); RDW 14.7 % (10.5-14.5); WBC 5.3 thou/uL (4.0-11.0)
[2019-01-21 15:20] LABS: CALCIUM 8.8 mg/dL (8.5-10.1); CREATININE 1.1 mg/dL (0.7-1.3); POTASSIUM 3.7 mmol/L (3.5-5.1)
[2019-01-21 15:27] LABS: TOTAL BILIRUBIN 0.3 mg/dL (<0.1-1.0); TOTAL PROTEIN 7.5 g/dL (6.4-8.2)
[2019-01-21] MEDS ORDERED: PHENERGAN 25 MG25 M1 PO (16:17)
[2019-01-21] MEDS ORDERED: ZOFRAN ODT4 MG PO (16:17)
[2019-01-21] MEDS ORDERED: CARAFATE1 GM PO (16:21)
[2019-01-21 16:36] VITALS: BP 123/79
== END 2019-01-21 16:37 | disposition home or self-care (01) ==
LOC: ER 14:39
PROVIDERS: Emergency Medicine
DX: F11.23 Opioid dependence with withdrawal (principal); R10.13 Epigastric pain; R10.11 Right upper quadrant pain; R19.7 Diarrhea, unspecified; F17.210 Nicotine dependence, cigarettes, uncomplicated; F31.9 Bipolar disorder, unspecified; G89.29 Other chronic pain; F41.9 Anxiety disorder, unspecified; J45.909 Unspecified asthma, uncomplicated; Z90.49 Acquired absence of other specified parts of digestive tract; Z88.5 Allergy status to narcotic agent; Z88.1 Allergy status to other antibiotic agents; Z91.030 Bee allergy status; Z98.84 Bariatric surgery status

== ENCOUNTER 2019-03-18 17:02 | Emergency (ER) | payer OTHER ==
[~2019-03-18] VITALS: Ht 190.5 cm; Wt 118.8 kg
[~2019-03-18 17:02] MED LIST changes: +CARAFATE1 GM PO; +PHENERGAN 25 MG25 M1 PO
[2019-03-18 17:38] LABS: URINE BILIRUBIN NEGATIVE (Negative); URINE BLOOD NEGATIVE (Negative); URINE CLARITY CLEAR; URINE COLOR YELLOW; URINE GLUCOSE-RANDOM* NEGATIVE (Negative); URINE KETONES TRACE (Negative); URINE LEUKOCYTES NEGATIVE (Negative); URINE NITRITE NEGATIVE (Negative); URINE PROTEIN (DIPSTICK) NEGATIVE (Negative); URINE SPECIFIC GRAVITY 1.015 (1.005-1.035)
[2019-03-18 18:03] LABS: ABSOLUTE NEUTROPHILS 6.3 thou/uL (1.4-8.2); BASOPHILS 0.3 % (0.0-2.0); EOSINOPHILS 0.2 % (0.0-3.0); HEMATOCRIT 40.7 % (42.0-52.0); HEMOGLOBIN 13.8 gm/dL (14.0-18.0); LYMPHOCYTES 14.1 % (24.0-44.0); MCHC 33.9 g/dL (28.0-37.0); MCV 91.5 fL (80.0-100.0); MONOCYTES 5.5 % (1.0-8.0); PLATELET COUNT 296 thou/uL (150-400); POLYS 79.9 % (36.0-66.0); RBC 4.45 mil/uL (4.50-6.00); RDW 13.8 % (10.5-14.5); WBC 7.9 thou/uL (4.0-11.0)
[2019-03-18 18:10] LABS: CALCIUM 9.2 mg/dL (8.5-10.1); POTASSIUM 4.1 mmol/L (3.5-5.1)
[2019-03-18 18:16] LABS: ALBUMIN 3.9 g/dL (3.4-5.0); TOTAL BILIRUBIN 0.4 mg/dL (<0.1-1.0); TOTAL PROTEIN 7.5 g/dL (6.4-8.2)
[2019-03-18 18:17] LABS: TROPONIN-I <0.06 ng/mL (<0.06)
[2019-03-18 21:09] VITALS: BP 139/79
--- NOTE | 2019-03-19 15:11 | EKG ---
[place] [address] [facility] [place] [place] [address] ELECTROCARDIOGRAM REPORT Name: SABAS MOREIRA [facility] #: [facility]P [facility] [id number] Admission: 03/18/19 Attend Phys: Discharge: 03/18/19 Date of : 74 Report #: [id number] THIS REPORT FOR: //name// [facility] ED Test Date: 2019-03-18 Test Time: 17:53:26 Pat Name: SABAS MOREIRA Department: Room: Gender: M Private Sector Executive: WG : 1970 Requested By: Rosenda Mcgovern Order Number: [id number] MD: Tono Melton Measurements Intervals [place] Rate: 92 P: 37 MT: 151 QRS: 59 QRSD: 96 T: 75 QT: 349 QTc: 432 Interpretive Statements Sinus rhythm Abnormal R-wave progression, early transition Baseline wander in lead(s) V6 Compared to ECG 07/27/2018 19:12:52 No significant changes Electronically Signed On 03-19-2019 15:11:00 CDT by Tono Melton [email or web address] <ELECTRONICALLY SIGNED> By: Tono Melton MD 03/19/19 1511 175 52 Tono Melton MD /ZBIGNIEW
== END 2019-03-18 21:10 | disposition home or self-care (01) ==
LOC: ER 17:02
PROVIDERS: Physician Assistant
DX: E86.0 Dehydration (principal); R11.2 Nausea with vomiting, unspecified; G89.29 Other chronic pain; M54.5 Low back pain; R10.13 Epigastric pain; J45.909 Unspecified asthma, uncomplicated; F31.9 Bipolar disorder, unspecified; F41.9 Anxiety disorder, unspecified; M43.26 Fusion of spine, lumbar region; F17.210 Nicotine dependence, cigarettes, uncomplicated; Z90.49 Acquired absence of other specified parts of digestive tract; Z98.84 Bariatric surgery status; Z91.030 Bee allergy status; Z88.5 Allergy status to narcotic agent; Z88.1 Allergy status to other antibiotic agents

== ENCOUNTER 2019-04-18 17:31 | Emergency (ER) | payer OTHER ==
[~2019-04-18] VITALS: Ht 190.5 cm; Wt 116.6 kg
[2019-04-18 20:41] LABS: ABSOLUTE NEUTROPHILS 3.5 thou/uL (1.4-8.2); BASOPHILS 0.6 % (0.0-2.0); EOSINOPHILS 1.3 % (0.0-3.0); HEMATOCRIT 41.5 % (42.0-52.0); LYMPHOCYTES 24.6 % (24.0-44.0); MCH 30.9 pg (26.0-34.0); MCHC 33.7 g/dL (28.0-37.0); MCV 91.8 fL (80.0-100.0); MONOCYTES 9.6 % (1.0-8.0); PLATELET COUNT 292 thou/uL (150-400); POLYS 63.9 % (36.0-66.0); RBC 4.52 mil/uL (4.50-6.00); RDW 13.7 % (10.5-14.5); WBC 5.5 thou/uL (4.0-11.0)
[2019-04-18 20:42] LABS: URINE BILIRUBIN NEGATIVE (Negative); URINE BLOOD NEGATIVE (Negative); URINE CLARITY CLEAR; URINE COLOR YELLOW; URINE GLUCOSE-RANDOM* NEGATIVE (Negative); URINE KETONES NEGATIVE (Negative); URINE LEUKOCYTES-REFLEX NEGATIVE (Negative); URINE NITRITE-REFLEX NEGATIVE (Negative); URINE PROTEIN (DIPSTICK) NEGATIVE (Negative); URINE SPECIFIC GRAVITY 1.025 (1.005-1.035)
[2019-04-18 21:12] LABS: CALCIUM 9.1 mg/dL (8.5-10.1); POTASSIUM 3.2 mmol/L (3.5-5.1)
[2019-04-18 21:17] LABS: ALBUMIN 3.9 g/dL (3.4-5.0); TOTAL BILIRUBIN 0.4 mg/dL (<0.1-1.0); TOTAL PROTEIN 7.5 g/dL (6.4-8.2)
[2019-04-18 22:02] VITALS: BP 133/83
== END 2019-04-18 22:02 | disposition home or self-care (01) ==
LOC: ER 17:31
PROVIDERS: Physician Assistant
DX: K29.70 Gastritis, unspecified, without bleeding (principal); M54.9 Dorsalgia, unspecified; G89.29 Other chronic pain; J45.909 Unspecified asthma, uncomplicated; F41.9 Anxiety disorder, unspecified; F31.9 Bipolar disorder, unspecified; F17.210 Nicotine dependence, cigarettes, uncomplicated; Z90.49 Acquired absence of other specified parts of digestive tract; Z91.030 Bee allergy status; Z88.1 Allergy status to other antibiotic agents; Z88.6 Allergy status to analgesic agent

== ENCOUNTER 2019-04-20 08:28 | Emergency (ER) | payer OTHER ==
[~2019-04-20] VITALS: Ht 190.5 cm; Wt 117.9 kg
[2019-04-20 09:05] LABS: HEMATOCRIT 42.1 % (42.0-52.0); HEMOGLOBIN 14.1 gm/dL (14.0-18.0); MCH 30.8 pg (26.0-34.0); MCHC 33.5 g/dL (28.0-37.0); MCV 92.1 fL (80.0-100.0); RBC 4.58 mil/uL (4.50-6.00); RDW 13.9 % (10.5-14.5); WBC 4.4 thou/uL (4.0-11.0)
[2019-04-20 09:26] LABS: CALCIUM 8.7 mg/dL (8.5-10.1); CREATININE 0.9 mg/dL (0.7-1.3); POTASSIUM 3.5 mmol/L (3.5-5.1)
[2019-04-20 09:32] LABS: TOTAL BILIRUBIN 0.4 mg/dL (<0.1-1.0); TOTAL PROTEIN 7.6 g/dL (6.4-8.2)
[2019-04-20 10:47] VITALS: BP 130/76
--- NOTE | 2019-04-21 08:05 | EKG ---
[place] [address] [facility] [place] [address] ELECTROCARDIOGRAM REPORT Name: LILLIE,SABAS RAMIREZLEY [facility] [id number] Admission: 04/20/19 Attend Phys: Discharge: 04/20/19 Date of : 74 Report #: [id number] THIS REPORT FOR: //name// [facility] ED Test Date: 2019-04-20 Test Time: 10:06:33 Pat Name: SABAS MOREIRA Department: Room: Gender: Brand Ambassadors Promotional Sales: jngum : 1970 Requested By: Bob Ibarra Order Number: [id number] MD: Freddy Forman Measurements Intervals [place] Rate: 84 P: 19 MI: 162 QRS: 51 QRSD: 98 T: 45 QT: 364 QTc: 431 Interpretive Statements Sinus rhythm Normal tracing Compared to ECG 03/18/2019 17:53:26 No significant changes Electronically Signed On 04-21-2019 8:05:15 CDT by Freddy Forman [email or web address] <ELECTRONICALLY SIGNED> By: Freddy Forman MD, [facility] 04/21/19 0805 1006 1006 Freddy Forman MD, FACC /EPI
== END 2019-04-20 11:00 | disposition home or self-care (01) ==
LOC: ER 08:28
PROVIDERS: Emergency Medicine
DX: G89.29 Other chronic pain (principal); R10.13 Epigastric pain; R30.0 Dysuria; J45.909 Unspecified asthma, uncomplicated; F31.9 Bipolar disorder, unspecified; F17.210 Nicotine dependence, cigarettes, uncomplicated; Z98.84 Bariatric surgery status; Z90.49 Acquired absence of other specified parts of digestive tract; Z91.030 Bee allergy status; Z88.1 Allergy status to other antibiotic agents; Z88.5 Allergy status to narcotic agent

== ENCOUNTER → 2019-05-13 | Outpatient (CLI) | payer OTHER | LOC: CAT 05-12 15:49 | DX: R10.13 Epigastric pain (principal); K56.41 Fecal impaction; Z90.49 Acquired absence of other specified parts of digestive tract ==

== ENCOUNTER 2019-07-28 16:40 | Emergency (ER) | payer OTHER ==
[~2019-07-28] VITALS: Ht 190.5 cm; Wt 111.1 kg
[2019-07-28 18:20] VITALS: BP 155/96
== END 2019-07-28 18:20 | disposition home or self-care (01) ==
LOC: ER 16:40
DX: S60.221A Contusion of right hand, initial encounter (principal); F17.210 Nicotine dependence, cigarettes, uncomplicated; F31.9 Bipolar disorder, unspecified; Z88.5 Allergy status to narcotic agent; Z88.8 Allergy status to other drugs, medicaments and biological substances; Z88.1 Allergy status to other antibiotic agents; Z91.030 Bee allergy status; W01.0XXA Fall on same level from slipping, tripping and stumbling without subsequent striking against object, initial encounter; Y93.89 Activity, other specified; Y92.89 Other specified places as the place of occurrence of the external cause; Y99.8 Other external cause status

== ENCOUNTER 2019-08-11 17:19 | Emergency (ER) | payer OTHER ==
[~2019-08-11] VITALS: Ht 170.2 cm; Wt 65.8 kg
[2019-08-11] MEDS ORDERED: BENTYL 20 MG TA20 M1 PO (17:48)
[2019-08-11 18:07] VITALS: BP 127/81
== END 2019-08-11 18:09 | disposition home or self-care (01) ==
LOC: ER 17:19
DX: M54.5 Low back pain (principal); G89.29 Other chronic pain; J45.909 Unspecified asthma, uncomplicated; F31.9 Bipolar disorder, unspecified; F41.9 Anxiety disorder, unspecified; F17.210 Nicotine dependence, cigarettes, uncomplicated; Z90.49 Acquired absence of other specified parts of digestive tract; Z91.030 Bee allergy status; Z88.1 Allergy status to other antibiotic agents; Z88.6 Allergy status to analgesic agent

== ENCOUNTER 2019-08-13 08:30 | Emergency (ER) | payer OTHER ==
[~2019-08-13] VITALS: Ht 190.5 cm; Wt 113.4 kg
[~2019-08-13 08:30] MED LIST changes: +BENTYL 20 MG TA20 M1 PO
[2019-08-13 09:18] LABS: ABSOLUTE NEUTROPHILS 3.2 thou/uL (1.4-8.2); BASOPHILS 1.3 % (0.0-2.0); EOSINOPHILS 0.5 % (0.0-3.0); HEMATOCRIT 43.1 % (42.0-52.0); HEMOGLOBIN 14.4 gm/dL (14.0-18.0); LYMPHOCYTES 16.2 % (24.0-44.0); MCH 30.7 pg (26.0-34.0); MCHC 33.4 g/dL (28.0-37.0); MONOCYTES 9.8 % (1.0-8.0); PLATELET COUNT 292 thou/uL (150-400); POLYS 72.2 % (36.0-66.0); RBC 4.69 mil/uL (4.50-6.00); RDW 13.8 % (10.5-14.5); WBC 4.4 thou/uL (4.0-11.0)
[2019-08-13 09:24] LABS: CALCIUM 9.4 mg/dL (8.5-10.1); CREATININE 1.2 mg/dL (0.7-1.3); POTASSIUM 3.6 mmol/L (3.5-5.1)
[2019-08-13 09:30] LABS: ALBUMIN 4.4 g/dL (3.4-5.0); DIRECT BILIRUBIN 0.1 mg/dL (<0.1-0.2); TOTAL BILIRUBIN 0.5 mg/dL (<0.1-1.0); TOTAL PROTEIN 8.2 g/dL (6.4-8.2)
[2019-08-13] MEDS ORDERED: PHENERGAN 25 MG25 M1 PO (10:22)
[2019-08-13] MEDS ORDERED: IMODIUM A-D2 MG PO (10:22)
[2019-08-13 10:46] VITALS: BP 137/85
== END 2019-08-13 10:47 | disposition home or self-care (01) ==
LOC: ER 08:30
PROVIDERS: Emergency Medicine
DX: F11.23 Opioid dependence with withdrawal (principal); R11.2 Nausea with vomiting, unspecified; J45.909 Unspecified asthma, uncomplicated; M54.9 Dorsalgia, unspecified; G89.29 Other chronic pain; F31.9 Bipolar disorder, unspecified; F41.9 Anxiety disorder, unspecified; Z90.49 Acquired absence of other specified parts of digestive tract; Z91.030 Bee allergy status; Z88.1 Allergy status to other antibiotic agents; Z88.6 Allergy status to analgesic agent; Y92.89 Other specified places as the place of occurrence of the external cause

== ENCOUNTER 2019-08-13 23:29 | Emergency (ER) | payer OTHER ==
[~2019-08-13] VITALS: Ht 190.5 cm; Wt 97.5 kg
[~2019-08-13 23:29] MED LIST changes: +IMODIUM A-D2 MG PO
[2019-08-14 00:27] LABS: ABSOLUTE NEUTROPHILS 3.8 thou/uL (1.4-8.2); BASOPHILS 0.5 % (0.0-2.0); EOSINOPHILS 1.3 % (0.0-3.0); HEMATOCRIT 38.8 % (42.0-52.0); HEMOGLOBIN 13.1 gm/dL (14.0-18.0); LYMPHOCYTES 21.2 % (24.0-44.0); MCHC 33.8 g/dL (28.0-37.0); MCV 91.8 fL (80.0-100.0); MONOCYTES 8.5 % (1.0-8.0); PLATELET COUNT 296 thou/uL (150-400); POLYS 68.5 % (36.0-66.0); RBC 4.22 mil/uL (4.50-6.00); RDW 13.9 % (10.5-14.5); WBC 5.5 thou/uL (4.0-11.0)
[2019-08-14 00:31] LABS: CALCIUM 8.9 mg/dL (8.5-10.1); POTASSIUM 3.4 mmol/L (3.5-5.1)
[2019-08-14 00:37] LABS: ALBUMIN 3.8 g/dL (3.4-5.0); TOTAL BILIRUBIN 0.5 mg/dL (<0.1-1.0); TOTAL PROTEIN 7.4 g/dL (6.4-8.2)
[2019-08-14 01:27] VITALS: BP 142/80
== END 2019-08-14 01:29 | disposition home or self-care (01) ==
LOC: ER 23:29
PROVIDERS: Emergency Medicine
DX: R11.2 Nausea with vomiting, unspecified (principal); R10.9 Unspecified abdominal pain; J45.909 Unspecified asthma, uncomplicated; F31.9 Bipolar disorder, unspecified; Z88.5 Allergy status to narcotic agent; Z88.1 Allergy status to other antibiotic agents; Z91.030 Bee allergy status

== ENCOUNTER 2019-08-18 16:32 | Emergency (ER) | payer OTHER ==
[~2019-08-18] VITALS: Ht 190.5 cm; Wt 113.4 kg
[2019-08-18 18:15] LABS: ABSOLUTE NEUTROPHILS 5.3 thou/uL (1.4-8.2); BASOPHILS 0.5 % (0.0-2.0); EOSINOPHILS 0.8 % (0.0-3.0); HEMATOCRIT 40.9 % (42.0-52.0); HEMOGLOBIN 13.5 gm/dL (14.0-18.0); MCH 30.4 pg (26.0-34.0); MCV 92.3 fL (80.0-100.0); MONOCYTES 7.5 % (1.0-8.0); PLATELET COUNT 294 thou/uL (150-400); POLYS 77.2 % (36.0-66.0); RBC 4.44 mil/uL (4.50-6.00); RDW 13.7 % (10.5-14.5); WBC 6.8 thou/uL (4.0-11.0)
[2019-08-18 18:24] LABS: CALCIUM 9.1 mg/dL (8.5-10.1); CREATININE 1.1 mg/dL (0.7-1.3)
[2019-08-18 18:30] LABS: ALBUMIN 3.6 g/dL (3.4-5.0); TOTAL BILIRUBIN 0.4 mg/dL (<0.1-1.0); TOTAL PROTEIN 7.4 g/dL (6.4-8.2)
[2019-08-18] MEDS ORDERED: OMEPRAZOLE 20 M20 M1 PO ×2 (19:32→19:41)
[2019-08-18 20:00] VITALS: BP 122/75
== END 2019-08-18 20:01 | disposition home or self-care (01) ==
LOC: ER 16:32
PROVIDERS: Physician Assistant
DX: K29.70 Gastritis, unspecified, without bleeding (principal); J45.909 Unspecified asthma, uncomplicated; M54.9 Dorsalgia, unspecified; G89.29 Other chronic pain; F31.9 Bipolar disorder, unspecified; F41.9 Anxiety disorder, unspecified; Z90.49 Acquired absence of other specified parts of digestive tract; Z91.030 Bee allergy status; Z88.1 Allergy status to other antibiotic agents; Z88.6 Allergy status to analgesic agent

== ENCOUNTER 2019-11-11 22:56 | Emergency (ER) | payer OTHER ==
[~2019-11-11] VITALS: Ht 190.5 cm; Wt 111.1 kg
[~2019-11-11 22:56] MED LIST changes: +OMEPRAZOLE 20 M20 M1 PO
[2019-11-11 23:41] LABS: CALCIUM 8.6 mg/dL (8.5-10.1); POTASSIUM 3.5 mmol/L (3.5-5.1)
[2019-11-11 23:51] LABS: ABSOLUTE NEUTROPHILS 2.4 thou/uL (1.4-8.2); BASOPHILS 0.5 % (0.0-2.0); EOSINOPHILS 1.3 % (0.0-3.0); HEMATOCRIT 38.6 % (42.0-52.0); LYMPHOCYTES 37.2 % (24.0-44.0); MCH 30.8 pg (26.0-34.0); MCHC 33.7 g/dL (28.0-37.0); MCV 91.3 fL (80.0-100.0); MONOCYTES 10.6 % (1.0-8.0); PLATELET COUNT 295 thou/uL (150-400); POLYS 50.4 % (36.0-66.0); RBC 4.23 mil/uL (4.50-6.00); RDW 14.3 % (10.5-14.5); WBC 4.7 thou/uL (4.0-11.0)
[2019-11-12] VITALS: BP 120/84
--- NOTE | 2019-11-12 09:28 | EKG ---
[facility] [place] [address] ELECTROCARDIOGRAM REPORT Name: SABAS MOREIRA Room #[facility]P [facility] [id number] Admission: 11/11/19 Attend Phys: Discharge: 11/12/19 Date of : 74 Report #: [id number] THIS REPORT FOR: cc: Arcelia Spaulding Christine L. DO Lundgren, Craig H. MD [facility] ~ THIS REPORT FOR: //name// [facility] ED Test Date: 2019-11-11 Test Time: 23:10:14 Pat Name: SABAS MOREIRA Department: Room: Gender: Holiday Detector Operator[facility] : 1970 Requested By: Jeffy Ordoñez Order Number: [id number] MD: Freddy Forman Measurements Intervals [place] Rate: 89 P: 38 MI: 148 QRS: 52 QRSD: 96 T: 54 QT: 354 QTc: 431 Interpretive Statements Sinus rhythm No significant abnormality Compared to ECG 04/20/2019 10:06:33 No significant changes Electronically Signed On 11-12-2019 9:26:47 CDT by Freddy Forman [email or web address] <ELECTRONICALLY SIGNED> By: Freddy Forman MD, [facility] 11/12/19 0926 2310 2310 Freddy Forman MD, [facility] /EPI
== END 2019-11-12 00:05 | disposition home or self-care (01) ==
LOC: ER 22:56
PROVIDERS: Emergency Medicine
DX: K52.9 Noninfective gastroenteritis and colitis, unspecified (principal); R11.2 Nausea with vomiting, unspecified; J45.909 Unspecified asthma, uncomplicated; M54.9 Dorsalgia, unspecified; G89.29 Other chronic pain; F31.9 Bipolar disorder, unspecified; F41.9 Anxiety disorder, unspecified; Z90.49 Acquired absence of other specified parts of digestive tract; Z91.030 Bee allergy status; Z88.1 Allergy status to other antibiotic agents; Z88.6 Allergy status to analgesic agent

== ENCOUNTER 2020-02-03 09:24 | Emergency (ER) | payer OTHER ==
[~2020-02-03] VITALS: Ht 190.5 cm; Wt 111.1 kg
[2020-02-03 10:17] LABS: ABSOLUTE NEUTROPHILS 3.8 thou/uL (1.4-8.2); BASOPHILS 0.6 % (0.0-2.0); EOSINOPHILS 0.3 % (0.0-3.0); HEMATOCRIT 39.3 % (42.0-52.0); HEMOGLOBIN 13.4 gm/dL (14.0-18.0); LYMPHOCYTES 17.9 % (24.0-44.0); MCH 31.5 pg (26.0-34.0); MCHC 34.1 g/dL (28.0-37.0); MCV 92.2 fL (80.0-100.0); MONOCYTES 7.1 % (1.0-8.0); PLATELET COUNT 261 thou/uL (150-400); POLYS 74.1 % (36.0-66.0); RBC 4.26 mil/uL (4.50-6.00); RDW 13.9 % (10.5-14.5); WBC 5.1 thou/uL (4.0-11.0)
[2020-02-03 10:45] LABS: ANION GAP 10 mmol/L (7-16); BUN 10 mg/dL (7-18); CALCIUM 8.8 mg/dL (8.5-10.1); CHLORIDE 103 mmol/L (98-107); CO2 27 mmol/L (21-32); CREATININE 1.3 mg/dL (0.7-1.3); GLUCOSE 96 mg/dL (74-106); POTASSIUM 3.4 mmol/L (3.5-5.1); SODIUM 140 mmol/L (136-145)
[2020-02-03 10:52] LABS: TROPONIN-I <0.06 ng/mL (<0.06)
[2020-02-03 14:21] VITALS: BP 127/91
--- NOTE | 2020-02-04 08:12 | EKG ---
[facility] [place] [address] ELECTROCARDIOGRAM REPORT Name: SABAS MOREIRA [id number] Admission: 02/03/20 Attend Phys: Discharge: 02/03/20 Date of : 74 Report #: [id number] THIS REPORT FOR: cc: Arcelia Spaulding Christine L. DO Couchonnal, Luis F. MD ~ THIS REPORT FOR: //name// [facility] ED Test Date: 2020-02-03 Test Time: 12:23:12 Pat Name: SABAS MOREIRA Department: Room: Gender: Division Toll Wire Chief: : 1970 Requested By: Jeffy Ordoñez Order Number: [id number] MD: Tono Melton Measurements Intervals [place] Rate: 84 P: 50 HI: 162 QRS: 74 QRSD: 105 T: 54 QT: 366 QTc: 433 Interpretive Statements Sinus rhythm Compared to ECG 11/11/2019 23:10:14 No significant changes Electronically Signed On 02-04-2020 8:12:00 CDT by Tono Melton [email or web address] <ELECTRONICALLY SIGNED> By: Tono Melton MD 02/04/20811 22 22 MD AUSTYN Petersen
== END 2020-02-03 14:29 | disposition home or self-care (01) ==
LOC: ER 09:24
PROVIDERS: Emergency Medicine
DX: R06.02 Shortness of breath (principal); K62.89 Other specified diseases of anus and rectum; R07.89 Other chest pain; J45.909 Unspecified asthma, uncomplicated; F31.9 Bipolar disorder, unspecified; F41.9 Anxiety disorder, unspecified; Z90.49 Acquired absence of other specified parts of digestive tract; Z98.84 Bariatric surgery status; Z79.899 Other long term (current) drug therapy; Z91.030 Bee allergy status; Z88.1 Allergy status to other antibiotic agents; Z88.5 Allergy status to narcotic agent

== ENCOUNTER 2020-04-28 09:42 | Emergency (ER) | payer OTHER ==
[~2020-04-28] VITALS: Ht 190.5 cm; Wt 99.8 kg
[2020-04-28 09:44] VITALS: BP 131/77
[2020-04-28 11:52] LABS: HEMATOCRIT 36.6 % (42.0-52.0); HEMOGLOBIN 12.2 gm/dL (14.0-18.0); MCH 31.1 pg (26.0-34.0); MCHC 33.3 g/dL (28.0-37.0); MCV 93.7 fL (80.0-100.0); PLATELET COUNT 177 thou/uL (150-400); RBC 3.91 mil/uL (4.50-6.00); RDW 13.9 % (10.5-14.5); WBC 3.4 thou/uL (4.0-11.0)
[2020-04-28 12:10] LABS: CALCIUM 8.3 mg/dL (8.5-10.1); CREATININE 1.1 mg/dL (0.7-1.3); POTASSIUM 3.8 mmol/L (3.5-5.1)
[2020-04-28 12:16] LABS: ALBUMIN 3.2 g/dL (3.4-5.0); TOTAL PROTEIN 6.4 g/dL (6.4-8.2)
[2020-04-28 12:19] LABS: ABSOLUTE NEUTROPHILS 1.5 thou/uL (1.4-8.2); PLATELET ESTIMATE NORMAL
[2020-04-28] MEDS ORDERED: PREDNISONE 20 M20 M1 PO (12:48)
[2020-04-28] MEDS ORDERED: CLEOCIN HCL150 M1 PO (12:48)
== END 2020-04-28 13:00 ==
LOC: ER 09:42
PROVIDERS: Emergency Medicine
DX: R23.8 Other skin changes (principal); J45.909 Unspecified asthma, uncomplicated; Z90.49 Acquired absence of other specified parts of digestive tract; Z79.899 Other long term (current) drug therapy; Z88.1 Allergy status to other antibiotic agents; Z88.5 Allergy status to narcotic agent; Z91.030 Bee allergy status

== ENCOUNTER 2020-05-03 11:53 | Inpatient (IN) | payer OTHER ==
[~2020-05-03] VITALS: Ht 190.5 cm; Wt 110.7 kg
--- NOTE | ~2020-05-03 | HC ---
[facility] [place] [address] CONSULTATION Name: SABAS MOREIRA Room #: 461-P ADM IN M.R.#: [id number] Admission: 05/03/20 Attend Phys: Jamar Purvis MD Discharge: Date of : 74 Report #: [id number] THIS REPORT FOR: cc: Arcelia Spaulding,Amos Caba MD ~ DATE OF SERVICE: 05/03/2020 CHIEF COMPLAINT: Necrotizing infection to the right thigh. HISTORY OF PRESENT ILLNESS: This is a 49-year-old male patient who I was asked to see in the Emergency Department today. He had presented approximately 2 days ago with some swelling and redness to the right lateral thigh, was started on prednisone and clindamycin. He reports over the last 48 hours that the redness has increased and he has developed an area of tissue necrosis on the lateral thigh. He does not recall any insect bite or injury to the area and thinks that this developed spontaneously and has not experienced anything like this in the past. He complains of some myalgias, but denies fever or chills. He is concerned, however, that it is worsening despite being on antibiotics. PAST MEDICAL HISTORY: Positive for history of asthma, bipolar disorder, depression, anxiety, chronic back pain, previous cholecystectomy, previous gastric bypass, previous appendectomy, previous L4-L5 diskectomy and L4-L5 fusion. SOCIAL HISTORY: The patient admits to alcohol use on special occasions. Smokes marijuana on occasion. Denies other tobacco use. FAMILY HISTORY: Noncontributory. MEDICATIONS: Include diazepam, quetiapine, olanzapine, cyclobenzaprine, oxycodone, sucralfate and omeprazole. REVIEW OF SYSTEMS: CONSTITUTIONAL: The patient complains of myalgias. Denies fever, chills or weight loss. NEUROLOGICAL: The patient denies focal weakness, numbness or tingling. EYES: The patient denies visual changes, redness, or drainage. ENT: The patient denies earache, nasal drainage or sore throat. CARDIOVASCULAR: The patient denies chest pain, palpitations or diaphoresis. PULMONARY: The patient denies cough or shortness of breath. GASTROINTESTINAL: The patient denies nausea, vomiting, diarrhea or abdominal pain. ORTHOPEDIC: The patient complains of pain, swelling and tissue necrosis [address] [address] CONSULTATION Name: LILLIESABAS DIAZ Room #: 461 ADM IN M.R.#: [id number] Admission: 05/03/20 Attend Phys: Jamar Purvis MD Discharge: Date of : 74 Report #: [id number] involving his right lateral thigh. Other systems in a 14-point review of systems are negative. PHYSICAL EXAMINATION: VITAL SIGNS: At this time include temperature 36.4, pulse 88, respiratory rate 16, blood pressure ____/81. GENERAL: This is a well-developed male patient who appears to be in minimal distress. HEENT: Head normocephalic. Nose and throat are clear. NECK: Supple. LUNGS: Clear. ABDOMEN: Bowel sounds present. EXTREMITIES: Examination of the lower extremities demonstrates an area of significant tenderness, swelling and redness involving the right lateral thigh. There is central necrosis. It is very tender. It does not quite seem to be fluctuant, however. LABORATORY STUDIES: Include a lactic acid of 1.6. Sodium 138, potassium 4.0, chloride 104, CO2 of 27, BUN 12, creatinine 1.3, glucose 123, calcium is 8.6, albumin is 3.6. White blood cell count ____ with hemoglobin of 13.0. CLINICAL IMPRESSION: 1. Cellulitis with a necrotizing component to the right lateral thigh. 2. Chronic back pain. 3. History of asthma. 4. History of depression, bipolar disorder. RECOMMENDATIONS: At this point in time, the patient has failed outpatient therapy and has had progression of cellulitis and now demonstrating significant area of tissue necrosis. My recommendation is that he will be admitted to the hospital and started on intravenous antibiotic. I think he will likely require surgical incision and drainage. He has been seen by Dr. Floyd in the past. We will recommend consultation with Dr. Floyd, for possible surgical debridement. I think that no specific dressing was required at this time. I think we can leave the area open to air, which will certainly make for easier observation and there is no drainage and the eschar is currently dry stable. I appreciate being asked to see him in consultation. By: 1019 [id number] Amos Chaparro MD /nt
[~2020-05-03 11:53] MED LIST changes: +CLEOCIN HCL150 M1 PO; +PREDNISONE 20 M20 M1 PO
[2020-05-03 11:56] VITALS: BP 127/82
[2020-05-03 12:47] LABS: ABSOLUTE NEUTROPHILS 6.7 thou/uL (1.4-8.2); BASOPHILS 0.2 % (0.0-2.0); EOSINOPHILS 0.1 % (0.0-3.0); HEMATOCRIT 39.3 % (42.0-52.0); LYMPHOCYTES 5.9 % (24.0-44.0); MCH 30.7 pg (26.0-34.0); MCV 93.1 fL (80.0-100.0); PLATELET COUNT 221 thou/uL (150-400); POLYS 88.8 % (36.0-66.0); RBC 4.22 mil/uL (4.50-6.00); RDW 13.7 % (10.5-14.5); WBC 7.5 thou/uL (4.0-11.0)
[2020-05-03 13:09] LABS: CALCIUM 8.6 mg/dL (8.5-10.1); CREATININE 1.3 mg/dL (0.7-1.3)
[2020-05-03 13:18] LABS: ALBUMIN 3.6 g/dL (3.4-5.0); DIRECT BILIRUBIN 0.2 mg/dL (<0.1-0.2); TOTAL BILIRUBIN 0.5 mg/dL (0.2-1.0); TOTAL PROTEIN 7.4 g/dL (6.4-8.2)
[2020-05-03 15:06] LABS: URINE BILIRUBIN NEGATIVE (Negative); URINE BLOOD NEGATIVE (Negative); URINE CLARITY CLEAR; URINE COLOR YELLOW; URINE GLUCOSE-RANDOM* NEGATIVE (Negative); URINE KETONES NEGATIVE (Negative); URINE LEUKOCYTES-REFLEX NEGATIVE (Negative); URINE NITRITE-REFLEX NEGATIVE (Negative); URINE PROTEIN (DIPSTICK) NEGATIVE (Negative)
[2020-05-03 15:52] LABS: FOLIC ACID 4.2 ng/mL (8.6-58.9); TSH 0.407 uIU/mL (0.358-3.740)
[2020-05-03 17:48] VITALS: BP 139/81
[2020-05-03 18:44] VITALS: BP 148/87
[2020-05-03 20:44] VITALS: BP 132/84
--- NOTE | 2020-05-04 02:32 | NUR ---
ADMITTED FROM ER UNDER DR TSAI'S CARE. VSS. INITIAL TX TO R THIGH RENDERED. NO S/S ACUTE DISTRESS NOTED OR REPORTED AT THIS TIME. WILL CONT TO MONITOR FOR ANY CHANGES IN CONDITION.
[2020-05-04 05:07] VITALS: BP 103/66
[2020-05-04 05:41] LABS: ABSOLUTE NEUTROPHILS 1.7 thou/uL (1.4-8.2); BASOPHILS 0.5 % (0.0-2.0); EOSINOPHILS 2.5 % (0.0-3.0); LYMPHOCYTES 39.1 % (24.0-44.0); MCH 31.5 pg (26.0-34.0); MCHC 33.9 g/dL (28.0-37.0); MCV 92.9 fL (80.0-100.0); MONOCYTES 11.3 % (1.0-8.0); PLATELET COUNT 193 thou/uL (150-400); POLYS 46.6 % (36.0-66.0); RBC 3.34 mil/uL (4.50-6.00); RDW 13.4 % (10.5-14.5); WBC 3.7 thou/uL (4.0-11.0)
[2020-05-04 06:01] LABS: CALCIUM 7.8 mg/dL (8.5-10.1); MAGNESIUM 1.9 mg/dL (1.8-2.4); POTASSIUM 3.8 mmol/L (3.5-5.1)
[2020-05-04 06:11] LABS: HEMOGLOBIN 10.5 gm/dL (14.0-18.0)
[2020-05-04 07:16] VITALS: BP 111/71
[2020-05-04 15:59] VITALS: BP 113/73
--- NOTE | 2020-05-04 16:23 | NUR ---
PT ADMITTED RELATED TO TO THIGH CELLULITIS. CM REVIEWED CHART AND SPOKE WITH CARE TEAM. CM CALLED AND SPOKE WITH PT AT BEDSIDE THIS DAY. PT APPEARES TO BE A&O X4. CM ROLE INTRODUCED. PT INDICATED HE LIVES IN A HOUSE WITH HIS SISTER AND HER 2 KIDS. HE INDICATED 1 STEP TO ENTER AND 5 STEPS PT USES INSIDE. 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 PT INDICATED NO HH OR OP THERAPY IN THE PAST. PT ANTICPATES RETURNING HOME ONCE MEDICALLY STABLE. PT IS ON IV VANC. I&D ANTICIPATED TOMORROW. CM TO FOLLOW INDICATED WITH DC PLANNING.
--- NOTE | 2020-05-04 18:40 | NUR ---
ASSUMED CARE OF PATIENT AT 0700. ASSESSMENT CHARTED. MEDS GIVEN PER MAR. VSS. PATIENT IS A&OX3 AND MAKES NEEDS KNOWN. STATES HE DID NOT WANT TO OUR HOSPITAL FOOD. PATIENT ORDERED FOOD FROM [employer] AND DID NOT START EATING UNTIL AFTER 1800. WOUND DRESSING ON L FOOT IS C/D/I NO DRAINAGE NOTED. PATIENT VOIDS IN URINAL W GOOD OUTPUT. WILL CONTINUE TO MONITOR AND ENDORSE TO NOC. TALIA.
--- NOTE | 2020-05-04 18:52 | NUR ---
ASSUMED CARE OF PATIENT THIS AM. ASSESSMENT CHARTED. MEDS GIVEN PER AUG. VSS. PATIENT IS A&OX4 AND SBA TO BATHROOM. ON IV ABX. NEW IV ACCESS STARTED ON L FOR. I&D TOMORROW 04/04. CONSENT STILL NEEDS TO BE SIGNED. WILL BE NPO AFTER MIDNIGHT. PATIENT AWARE. C/O PAIN ON THIGH. PRN MEDS PROVIDED NEEDED. PATIENT VOICES NO OTHER NEEDS AT THIS TIME. WILL CONTINUE TO MONITOR AND FOLLOW PLAN OF CARE.
--- NOTE | 2020-05-04 19:05 | NUR ---
I AGREE WITH NURSING ASSESSMENT AND NURSING NOTE DONE BY VENUS/INTERNAL REVENUE AGENT.
[2020-05-04 20:36] VITALS: BP 111/75
[2020-05-05] VITALS (7 sets, daily range): BP systolic 117–134; BP diastolic 72–86
--- NOTE | 2020-05-05 02:03 | NUR ---
PAIN CONTROLLED THIS SHIFT. PATIENT RIGHT THIGH CELLULITIS HAS ESCAR NO DRAINAGE. PATIENT VANCO TROUGH WAS 13 PHARMACY NOTIFIED NO NEW ORDER.PATIENT AMBULATES IN THE ROOM WITH STEADY GAITS. PATIENT HAS BEEN NPO SINCE MIDNIGHT. PATIENT IN BED ASLEEP AT THIS TIME BREATHING REGULAR AND UNLABOURED.
--- NOTE | 2020-05-05 10:50 | HC ---
[facility] [place] [address] CONSULTATION Name: SABAS MOREIRA Room #: 461-P ADM IN M.R.#: [id number] Admission: 05/03/20 Attend Phys: Jamar Purvis MD Discharge: Date of : 74 Report #: [id number] THIS REPORT FOR: cc: Arcelia Spaulding Christine L. DO Soliman, Mohsin Q. MD [facility] ~ DATE OF SERVICE: 05/03/2020 GENERAL SURGERY CONSULT CHIEF COMPLAINT: Right lateral thigh necrotic wound. HISTORY OF PRESENT ILLNESS: The patient is a 49-year-old male who presents for the second time in a week with complaints of a right thigh wound. This first began as a blister for which he was seen in the Emergency Room and discharged on clindamycin and steroid taper. The patient states he followed up once again with worsening erythema and necrosis to the center most portion of the wound that is exquisitely painful. The patient has since been admitted and I have been asked to evaluate as I have a preexisting relationship with the patient. PAST MEDICAL HISTORY: Asthma, chronic pain with chronic narcotic usage, depression with bipolar, obesity. HOME MEDICATIONS: Oxycodone, Carafate, clindamycin and omeprazole. ALLERGIES: TO BEE STINGS, KEFLEX AND MORPHINE. SOCIAL HISTORY: The patient does not utilize tobacco or illicit drugs, does drink alcohol, but states never to excess. FAMILY HISTORY: Reviewed and noncontributory. REVIEW OF SYSTEMS: GENERAL: The patient denies nocturnal fevers or chills. HEENT: No change in vision, change in hearing. NECK: No swelling or difficulty swallowing. HEART: No chest pain or palpitations. LUNGS: No cough or shortness of breath. ABDOMEN: No nausea, no vomiting. GENITOURINARY: No dysuria or hematuria. ENDOCRINE: No polyuria or polyphagia. HEMATOLOGIC: No history of bleeding or easy bruising. EXTREMITIES: No history of weakness or limited range of motion. NEUROLOGIC: No history of syncope or near syncopal episodes. [facility] [address] [place] [address] CONSULTATION Name: SABAS MOREIRA Room #: [address] [place] [address] IN M.R.#: [id number] Admission: 05/03/20 Attend Phys: Jamar Purvis MD Discharge: Date of : 74 Report #: [id number] SKIN AND INTEGUMENT: No history of abnormal lesions or moles. PSYCHIATRIC: No history of anxiety . Positive history of depression with bipolarism. PHYSICAL EXAMINATION: VITAL SIGNS: Temperature 97.5, pulse 107, respirations 16, blood pressure 127/82. GENERAL: Alert, in no acute distress. HEENT: Normocephalic, atraumatic. Pupils equal, round, reactive to light. NECK: Supple, without lymphadenopathy. Trachea midline. HEART: Regular rate and rhythm. LUNGS: Clear to auscultation bilaterally. ABDOMEN: Soft, nontender, nondistended, positive bowel sounds. GENITOURINARY: Normal external male genitalia. EXTREMITIES: No clubbing, cyanosis or edema. NEUROLOGIC: Cranial nerves 2-12 are grossly intact. SKIN AND INTEGUMENT: Right lateral thigh wound shows a necrotic center to the wound with surrounding erythema. No crepitus. PSYCHIATRIC: Denies homicidal or suicidal ideation. LABORATORY AND X-RAY DATA: CBC shows white blood cell count of 7.5 thousand, hemoglobin 13.0, platelets 221,000. His creatinine is 1.3. Liver function enzymes are normal. ASSESSMENT AND PLAN: A 49-year-old male with a right lateral thigh wound with surrounding cellulitis and necrosis centrally. The patient has failed outpatient antibiotic therapy and as such has been admitted for IV antibiotic therapy under the direction of Infectious Disease. We will proceed to the operating room at the first available opportunity for a debridement of this wound. I sincerely appreciate this consult and will leave any further recommendations in the patient's chart as appropriate. <ELECTRONICALLY SIGNED> By: Wandy Fountain MD, FACS 05/05/20 1050 [id number] 1041 Wandy Fountain MD, FACS /nt
--- NOTE | 2020-05-05 11:59 | HC ---
[facility] [place] [address] CONSULTATION Name: SABAS MOREIRA Room #: 461-P ADM IN M.R.#: [id number] Admission: 05/03/20 Attend Phys: Jamar Purvis MD Discharge: Date of : 74 Report #: [id number] THIS REPORT FOR: cc: Arcelia Spaulding Christine L. DO Barry, Joseph W. MD ~ DATE OF SERVICE: 05/03/2020 INFECTIOUS DISEASE CONSULTATION ATTENDING PHYSICIAN: Dr. Purvis REASON FOR EVALUATION: Skin and soft tissue infection with cutaneous necrosis associated with the lateral aspect of the right lower extremity suspected infection. HISTORY OF SUBJECTIVE: Chart reviewed, patient examined. This is a 49-year-old gentleman with known history of asthma, chronic pain, previous gastric bypass, who had apparently a spontaneous lesion developed over the lateral aspect of the mid portion of his right thigh, described it as somewhat discolored. This progressed and now has a cutaneous necrosis. It is quite tender to palpation. There is sort of a lack of significant perimarginal inflammation, however. He notes no antecedent injury. He is not aware of any arthropod exposure. He does have animals. He was seen initially and discharged on oral antibiotics with clindamycin. This however progressed and he was evaluated due to worsening appearance. Evaluation noted he was afebrile. Vital signs otherwise fairly stable. Due to concern about infectious cause, he was treated with vancomycin and ciprofloxacin. Surgery evaluation is pending. Denies any pulmonary or gastrointestinal related complaints. ALLERGIES: BEE STINGS, MORPHINE, CEPHALEXIN, THE LATTER OF WHICH CAUSES ANAPHYLAXIS. CURRENT MEDICATIONS: Include lactobacillus, pantoprazole, Senna, enoxaparin, olanzapine, quetiapine, diazepam, sucralfate, albuterol, oxycodone, cyclobenzaprine, vancomycin and Cipro. PAST MEDICAL HISTORY: As described above, asthma, history of bipolar disease, depression, anxiety, chronic back syndrome, gastric bypass, L4-L5 fusion, chronic pain syndrome. SOCIAL HISTORY: Nonsmoker, occasional ethanol, no illicit drug use. Does smoke marijuana. [facility] [address] [place] [address] CONSULTATION Name: LILLIE,SABAS RAMIREZLEY Room #: 461-P [facility] IN M.R.#: [id number] Admission: 05/03/20 Attend Phys: Jamar Purvis MD Discharge: Date of : 74 Report #: [id number] FAMILY HISTORY: Noncontributory. REVIEW OF SYSTEMS: Otherwise, unremarkable 10-point review of systems. PHYSICAL EXAMINATION: GENERAL: He is alert, cooperative, appropriate, difficult to ascertain his baseline, may have some degree of mild encephalopathy. He is in mild distress. VITAL SIGNS: Temperature 97.5, pulse 85, respirations 16 and blood pressure 134/79, saturations 96%. SKIN: Warm, dry, no rashes. HEENT: Normocephalic. Extraocular muscles intact. NECK: Supple. LUNGS: Clear breath sounds bilaterally. HEART: Regular. I do not appreciate a murmur. ABDOMEN: Soft, nontender, nondistended. EXTREMITIES: Right lateral thigh has several centimeters areas of cutaneous necrosis. It is quite tender to palpation. It is difficult to ascertain, I do not believe there is any fluctuance or certainly some induration. He has got no inguinal adenopathy or tenderness distally. Pulses adequate. GENITOURINARY: Deferred. RECTAL: Deferred. LABORATORY DATA: CBC: White count of 7.5, H and H 13.0 and 39.3, platelets of 221. Electrolytes: Sodium 138, potassium 4.0, chloride 104, bicarbonate 27, anion gap of 7, BUN and creatinine 12 and 1.3. LFTs unremarkable with the exception of borderline elevated alkaline phosphatase of 124, albumin 3.6, total protein 7.4. Estimated GFR of 59. Lactic acid 1.6. Chest x-ray, no acute process. Urinalysis otherwise unremarkable microscopically. ASSESSMENT AND PLAN: Cutaneous necrosis involving lateral aspect of the right thigh, it certainly is a concern for infectious cause. There is no particular odor and systemically, he is not toxic. We can explain terms of an antecedent injury. I think it is reasonable to continue empiric therapy. Agree with surgical evaluation. Would image the leg to evaluate for possible underlying fluid collection and/or foreign body even. At this point, I do not suspect any unusual cause. We will discuss with Dr. Zimmer. <ELECTRONICALLY SIGNED> By: Roc Bush MD 05/05/20 1159 1540 0659 Roc Bush MD /nt
--- NOTE | 2020-05-05 14:28 | NUR ---
ASSUMED CARE OF PATIENT AT 0700. ASSESSMENT CHARTED. MEDS HELD PER NPO STATUS FOR I&D THIS AM. PATIENT IS A&OX4 MAKES NEEDS KNOWN. OCCASIONALLY C/O PAIN ON R THIGH. PATIENT RETURNED TO UNIT AT 1400 C/O PAIN RELIEVED IN PACU; C/O HUNGER. PROVIDER PAGED AND TEXTED TO RESUME DIET. ENDORSED TO 4S RN TRANSFERRED AT 1420.
--- NOTE | 2020-05-05 16:09 | NUR ---
on-going assessment: CM REVIEWED CHART. PT TRASNFERRED OVER FROM 4W. PT HAD THIGH WOUND DEBRIDEMENT TODAY AND REMAINS ON IV ANTIBITIOCS. CM SPOKE WITH ATTENDING WHO REPORTS PT WILL LIKELY BE HERE THROUGH THE WEEKEND. CM WILL CONTINUE TO FOLLOW TO ASSIST NEEDED.
--- NOTE | 2020-05-05 19:13 | NUR ---
Transfered pt. to floor at 1500. Pt. was calm and cooperative. Student nurse and Nurse instructor intiated Vancomycin and stopped after order was DC'd.
[2020-05-06 04:37] VITALS: BP 113/77
--- NOTE | 2020-05-06 05:13 | NUR ---
ASSUMED PT'S CARE THIS PM SHIFT. PT ALERT AND ORIENTED. VSS ON RA. MEDS GIVEN PER EMAR. PRN PAIN MEDS GIVEN THIS SHIFT. PT AMBULATING INDEPENDENTLY. ENCOURAGED TO CALL WHEN NEEDING ASSISTANCE. LFA IV WITH NS @ 125. PT SLEPT WELL THIS SHIFT. DRESSING TO RIGHT THIGH INTACT. CALL LIGHT WITHIN REACH. WILL CONTINUE TO MONITOR.
[2020-05-06 06:02] LABS: HEMATOCRIT 34.2 % (42.0-52.0); HEMOGLOBIN 11.5 gm/dL (14.0-18.0); MCH 31.1 pg (26.0-34.0); MCHC 33.6 g/dL (28.0-37.0); MCV 92.7 fL (80.0-100.0); RBC 3.7 mil/uL (4.50-6.00); RDW 13.3 % (10.5-14.5); WBC 6.4 thou/uL (4.0-11.0)
[2020-05-06 06:19] LABS: CALCIUM 8.6 mg/dL (8.5-10.1); CREATININE 0.9 mg/dL (0.7-1.3); POTASSIUM 3.8 mmol/L (3.5-5.1)
[2020-05-06 07:55] VITALS: BP 117/79
[2020-05-06 16:40] VITALS: BP 121/83
--- NOTE | 2020-05-06 18:06 | NUR ---
PT ASSESSED AT START OF SHIFT. IN GOOD SPIRITS. TAKING PAIN MEDS THAT HE TAKES CHRONICALLY AT HOME. UP TO THE BR W/ STANDBY. DOESN'T EAT MUCH W/ HISTORY OF GASTRIC BYPASS. DR. PARKINSON IN TO CHANGE RT THIGH DSNG -NEW ORDERS FOR DAIKENS WET TO DRY.
[2020-05-06 19:15] VITALS: BP 124/82
--- NOTE | 2020-05-07 01:48 | NUR ---
ASSESSMENT COMPLETED. R THIGH DRSG CHANGE COMPLETED. PT WAS HAVING SOME ITCHING AT THE WOUND SITE WHICH IS RESOLVED.C/O PAIN TO R THIGH WELL CHRONIC BACK PAIN. AFEBRILE. WALKS WELL TO THE BAATHROOM.MAKES NEEDS KNOWN.APPEARS TO BE SLEEPING WELL.
[2020-05-07 03:40] VITALS: BP 113/75
[2020-05-07 06:14] LABS: HEMATOCRIT 31.9 % (42.0-52.0); HEMOGLOBIN 10.7 gm/dL (14.0-18.0); MCHC 33.6 g/dL (28.0-37.0); MCV 92.2 fL (80.0-100.0); RBC 3.46 mil/uL (4.50-6.00); RDW 13.5 % (10.5-14.5); WBC 4.4 thou/uL (4.0-11.0)
[2020-05-07 06:25] LABS: CALCIUM 8.1 mg/dL (8.5-10.1); CREATININE 0.9 mg/dL (0.7-1.3); POTASSIUM 3.6 mmol/L (3.5-5.1)
[2020-05-07 07:40] VITALS: BP 130/88
[2020-05-07 15:36] VITALS: BP 123/84
--- NOTE | 2020-05-07 16:41 | NUR ---
PT ASSESSED AT START OF SHIFT. PT STATES FEELS BETTER. WOUND BED CLEAN AND PINK. MAURISIO'S DSNG CHANGE DONE- MOD AMT SS DRAINAGE. UP TO THE BR ONLY. PT PLANNING ON GOING HOME TOMORROW.
[2020-05-07 20:34] VITALS: BP 125/80
[2020-05-08 03:20] VITALS: BP 106/63
--- NOTE | 2020-05-08 04:03 | NUR ---
PT AOX4. PT REPORTS 6-7/10 PAIN IN RLE. PT RECEIVING PRN PO OXYCODONE Q6HR AND PRN IV TORADOL Q8HR WITH PRN PO APAP Q4HR AVAILABLE.PT REPORTS NUMBNESS WITHOUT TINGLING IN RLE. CAPILLARY REFILL INTACT, LESS THAN 3SEC IN ALL EXTREMITIES. PT REPORTS WEAKNESS WITHOUT DIZZINESS. PT RESTING IN BED THROUGHOUT SHIFT, FREQUENT REPOSITIONING ENCOURAGED. PT NOTED TO SHIFT INDEPENDENTLY WHILE IN BED. PT TOLERATING PO INTAKE OF FLUIDS AND REGULAR DIET WITHOUT ISSUE. PT ENCOURAGED TO NOTIFY STAFF FOR ALL NEEDS, CALL LIGHT WITHIN REACH, BED ALARM ON, BED IN LOWEST POSITION, FREQUENT MONITORING WILL CONTINUE.
[2020-05-08 07:10] VITALS: BP 115/79
--- NOTE | 2020-05-08 07:39 | NUR ---
ASUMMED CARE OF PATIENT HE IS RESTING IN BED NO PAIN OR RESP DISTRESS AT THIS TIME WILL FOLLOW POC.
[2020-05-08] MEDS ORDERED: BACTRIM DS TAB1 EAC1 PO (10:16)
--- NOTE | 2020-05-08 14:50 | NUR ---
cm spk w/pt re hh preferences. pt stated he did not have a preference, only interested in hh in network w/his insurance. cm faxed referral to [facility]. However, pt rn went to spk w/pt re wound care and rn informed cm that pt changed his mind and decided he did not want hh any longer, as he felt he had adequate support at home w/neice and sister, etc. cm contacted su w/Brittany to cancel.
[2020-05-08 15:15] VITALS: BP 121/83
[2020-05-08 16:31] VITALS: BP 121/83
--- NOTE | 2020-05-08 17:11 | NUR ---
DISCHARGE PAPERS REVIEWED WITH PATIENT SIGNED AND COPY IN CHART. IV ACSESS DCD PRN PAIN MED GIVEN PER REQUEST. RX CALLED TO PHARMACY.
[2020-05-08 17:13] VITALS: BP 121/83
--- NOTE | 2020-05-10 12:51 | O ---
[facility] [place] [address] [place] [address] OPERATIVE REPORT Name: SABAS MOREIRA Room #: 443-P [facility] IN M.R.#: [id number] Admission: 05/03/20 Attend Phys: Jamar Purvis MD Discharge: 05/08/20 Date of : 74 Report #: [id number] THIS REPORT FOR: cc: Arcelia Spaulding,Wandy Josue MD [facility] ~ CC: Jamar Spaulding DATE OF SERVICE: 05/05/2020 PREOPERATIVE DIAGNOSES: Necrotic right thigh wound. POSTOPERATIVE DIAGNOSES: Necrotic right thigh wound. PROCEDURES PERFORMED: Excisional debridement of skin, subcutaneous tissue and muscle/fascia from right thigh wound, ultimately measuring 5.5 x 4 cm in dimension (22 square cm). Preoperative wound measurements were 4 x 3 cm in dimension with gross necrosis and periwound erythema. SURGEON: Wandy Fountain MD [place]: None. ANESTHESIA: General endotracheal anesthesia. ESTIMATED BLOOD LOSS: 5 mL. COMPLICATIONS: None appreciated. SPECIMENS: Debrided tissue to pathology. INDICATIONS: The patient is a 49-year-old male who initially presented with a boil to the lateral right thigh for which he was prescribed an outpatient course of antibiotics. Unfortunately, this worsened with significant necrosis centrally and surrounding erythema consistent with cellulitis and as such, he has been admitted for IV antibiotic therapy. After a full evaluation by the wound care service, indication was for debridement and I was asked to evaluate thereby necessitating the above-mentioned procedure today. DESCRIPTION OF PROCEDURE: After explaining the risks, benefits and alternatives of the procedure with the patient in detail in the preoperative holding area and obtaining consent, the patient was brought to the operating room and placed supine on the operating room table. After conducting a thorough timeout procedure verifying correct patient and procedure, the patient was given general endotracheal anesthesia. Once adequate anesthesia was obtained, his right thigh [facility] [address] [place] [address] OPERATIVE REPORT Name: SABAS MOREIRA Room #: 443-P [facility] IN .R.#: [id number] Admission: 05/03/20 Attend Phys: Jamar Purvis MD Discharge: 05/08/20 Date of : 74 Report #: [id number] wound was prepped and draped in standard surgical sterile fashion. Electrocautery was used to circumferentially debride all nonviable skin, subcutaneous tissue and muscle/fascia from the entirety of the wound, carried down to the healthy bed of the wound. Hemostasis was assured with electrocautery and the specimen was passed off the field. The [employer]ash[employer]ix ultrasonic debridement tool was used to remove any remaining nonviable tissue as well as any biofilm from the bed of the wound. Again, hemostasis was assured with electrocautery and we now had healthy viable tissue throughout. The wound was then packed with sterile saline soaked Kerlix gauze, dressed with 4 x 4s, ABDs and Medipore tape completing the procedure. At the end of the procedure, all instrument, needle and sponge counts were correct. The patient tolerated the procedure without incident, was awakened in the operating room, transitioned to the recovery room in stable condition with no apparent complications. <ELECTRONICALLY SIGNED> By: Wandy Fountain MD, FACS 05/10/20 1251 1230 1602 Wandy Fountain MD, FACS /nt
== END 2020-05-08 17:54 | disposition home or self-care (01) | DRG 854 ==
LOC: ER 11:53 → EROBS 14:45 → 4W 14:45 → 4S 05-05 14:13
PROVIDERS: Internal Medicine; Nurse Practitioner; ADMIT Hospitalist; ATTEND Hospitalist
PROC: 0KBQ0ZZ Excision of Right Upper Leg Muscle, Open Approach (ICD-10-PCS; principal; 2020-05-05)
DX: A41.9 Sepsis, unspecified organism (principal); L97.119 Non-pressure chronic ulcer of right thigh with unspecified severity; L03.115 Cellulitis of right lower limb; I96 Gangrene, not elsewhere classified; G89.29 Other chronic pain; J45.909 Unspecified asthma, uncomplicated; F31.9 Bipolar disorder, unspecified; S81.801A Unspecified open wound, right lower leg, initial encounter; F41.9 Anxiety disorder, unspecified; X58.XXXA Exposure to other specified factors, initial encounter; Z79.899 Other long term (current) drug therapy; Z88.1 Allergy status to other antibiotic agents; Z98.84 Bariatric surgery status; Z88.5 Allergy status to narcotic agent; Z90.49 Acquired absence of other specified parts of digestive tract; Z88.8 Allergy status to other drugs, medicaments and biological substances; Y93.89 Activity, other specified; Y92.89 Other specified places as the place of occurrence of the external cause; Y99.8 Other external cause status; Z20.828 Contact with and (suspected) exposure to other viral communicable diseases
CPT/HCPCS: 10040; 10195; 50010; 50101; 50386; 50403; 57119; 57120; 62110; 62900; 70005

== ENCOUNTER 2021-03-24 14:52 | Emergency (ER) | payer OTHER ==
[~2021-03-24] VITALS: Ht 190.5 cm; Wt 95.3 kg
[~2021-03-24 14:52] MED LIST changes: +BACTRIM DS TAB1 EAC1 PO
[2021-03-24 15:20] LABS: ABSOLUTE NEUTROPHILS 3.5 thou/uL (1.4-8.2); BASOPHILS 0.5 % (0.0-2.0); EOSINOPHILS 0.2 % (0.0-3.0); HEMATOCRIT 36.9 % (42.0-52.0); HEMOGLOBIN 12.4 gm/dL (14.0-18.0); MCH 30.5 pg (26.0-34.0); MCHC 33.5 g/dL (28.0-37.0); MCV 91.2 fL (80.0-100.0); MONOCYTES 4.8 % (1.0-8.0); PLATELET COUNT 227 thou/uL (150-400); POLYS 80.5 % (36.0-66.0); RBC 4.05 mil/uL (4.50-6.00); RDW 14.1 % (10.5-14.5); WBC 4.4 thou/uL (4.0-11.0)
[2021-03-24 15:29] LABS: CALCIUM 8.8 mg/dL (8.5-10.1); CREATININE 1.1 mg/dL (0.7-1.3); POTASSIUM 4.1 mmol/L (3.5-5.1)
[2021-03-24 15:35] LABS: TOTAL BILIRUBIN 0.5 mg/dL (0.2-1.0); TOTAL PROTEIN 7.2 g/dL (6.4-8.2)
[2021-03-24] MEDS ORDERED: LACTULOSE PO (18:05)
[2021-03-24 18:11] VITALS: BP 138/88
--- NOTE | 2021-03-25 09:26 | EKG ---
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 : 1970 Requested By: Oj Hammond Order Number: [id number] MD: Freddy Forman Measurements Intervals [place] Rate: 90 P: 40 MA: 156 QRS: 59 QRSD: 99 T: 59 QT: 352 QTc: 431 Interpretive Statements Sinus rhythm Abnormal R-wave progression, early transition Compared to ECG 02/03/2020 12:23:12 No significant changes Electronically Signed On 03-25-2021 9:26:35 CDT by Freddy Forman [email or web address] <ELECTRONICALLY SIGNED> By: Freddy Forman MD, [facility] 03/25/21 0926 1519 1519 Freddy Forman MD, FACC /EPI
== END 2021-03-24 18:11 | disposition home or self-care (01) ==
LOC: ER 14:52
PROVIDERS: Emergency Medicine
DX: K59.00 Constipation, unspecified (principal); R10.84 Generalized abdominal pain; K62.5 Hemorrhage of anus and rectum; J45.909 Unspecified asthma, uncomplicated; F32.9 Major depressive disorder, single episode, unspecified; F41.9 Anxiety disorder, unspecified; Z90.49 Acquired absence of other specified parts of digestive tract; Z79.899 Other long term (current) drug therapy; Z91.030 Bee allergy status; Z88.1 Allergy status to other antibiotic agents; Z88.5 Allergy status to narcotic agent

== ENCOUNTER 2021-06-22 12:45 | Emergency (ER) | payer OTHER ==
[~2021-06-22] VITALS: Ht 190.5 cm; Wt 81.2 kg
[~2021-06-22 12:45] MED LIST changes: +LACTULOSE PO
[2021-06-22] MEDS ORDERED: PROAIR HFA8.5 GM INH (12:56)
[2021-06-22] MEDS ORDERED: DIAZEPAM 10 MG10 M2 PO (12:56)
[2021-06-22] MEDS ORDERED: QUETIAPINE FUM400 MG PO (12:57)
[2021-06-22 13:26] LABS: ABSOLUTE NEUTROPHILS 5.6 thou/uL (1.4-8.2); BASOPHILS 0.5 % (0.0-2.0); EOSINOPHILS 0.2 % (0.0-3.0); HEMATOCRIT 37.4 % (42.0-52.0); HEMOGLOBIN 12.4 gm/dL (14.0-18.0); MCH 29.8 pg (26.0-34.0); MCHC 33.1 g/dL (28.0-37.0); MCV 90.2 fL (80.0-100.0); MONOCYTES 9.5 % (1.0-8.0); PLATELET COUNT 267 thou/uL (150-400); POLYS 82.8 % (36.0-66.0); RBC 4.14 mil/uL (4.50-6.00); RDW 14.2 % (10.5-14.5); WBC 6.8 thou/uL (4.0-11.0)
[2021-06-22 13:54] LABS: CALCIUM 8.6 mg/dL (8.5-10.1); POTASSIUM 3.2 mmol/L (3.5-5.1)
[2021-06-22 14:04] VITALS: BP 134/83
[2021-06-22 14:09] LABS: ALBUMIN 3.1 g/dL (3.4-5.0); TOTAL BILIRUBIN 0.5 mg/dL (0.2-1.0); TOTAL PROTEIN 6.9 g/dL (6.4-8.2)
[2021-06-22 14:10] LABS: URINE BILIRUBIN NEGATIVE (Negative); URINE BLOOD NEGATIVE (Negative); URINE CLARITY CLEAR; URINE COLOR YELLOW; URINE GLUCOSE-RANDOM* NEGATIVE (Negative); URINE KETONES NEGATIVE (Negative); URINE LEUKOCYTES-REFLEX NEGATIVE (Negative); URINE NITRITE-REFLEX NEGATIVE (Negative); URINE PROTEIN (DIPSTICK) NEGATIVE (Negative)
--- NOTE | 2021-06-23 10:51 | EKG ---
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 : 1970 Requested By: Cristal Luna Order Number: [id number] MD: Freddy Forman Measurements Intervals [place] Rate: 104 P: 82 MN: 151 QRS: 80 QRSD: 85 T: 32 QT: 346 QTc: 455 Interpretive Statements Sinus tachycardia Borderline T wave abnormalities Compared to ECG 03/24/2021 15:19:07 T-wave abnormality now present Electronically Signed On 06-23-2021 10:51:22 COLLECTION SUPPORT SPECIALIST by Freddy Forman [email or web address] <ELECTRONICALLY SIGNED> By: Freddy Forman MD, [facility] 06/23/21 1051 1257 1257 Freddy Forman MD, FACC /EPI
== END 2021-06-22 14:37 | disposition home or self-care (01) ==
LOC: ER 12:45
PROVIDERS: Nurse Practitioner Family
DX: U07.1 COVID-19 (principal); J12.82 Pneumonia due to coronavirus disease 2019; R06.00 Dyspnea, unspecified; E87.6 Hypokalemia; F31.9 Bipolar disorder, unspecified; J45.909 Unspecified asthma, uncomplicated; F41.9 Anxiety disorder, unspecified; Z90.49 Acquired absence of other specified parts of digestive tract; Z79.891 Long term (current) use of opiate analgesic; Z79.1 Long term (current) use of non-steroidal anti-inflammatories (NSAID); Z79.51 Long term (current) use of inhaled steroids; Z79.899 Other long term (current) drug therapy; Z88.5 Allergy status to narcotic agent; Z88.1 Allergy status to other antibiotic agents; Z91.030 Bee allergy status